=== PATIENT | male | born 1960 | race Caucasian/White ===

== ENCOUNTER 2019-07-29 14:03 | Emergency (ER) | payer BC, SELFPAY ==
[2019-07-29 14:17] VITALS: BP 147/78; PULSE 79; RESP 20; TEMP 36.8; O2SAT 100
--- NOTE | 2019-07-29 14:19 | ED.SKABFB ---
HPI - Skin/Abscess/Foreign Bdy General Chief complaint: Headache Stated complaint: pos infection Time Seen by Provider: 07/29/19 14:20 Source: patient and RN notes reviewed History of Present Illness HPI narrative: Patient is a 59-year-old male who presents the urgent care with his spouse with complaints of a possible infection to a recent incision in the head. Patient states that he had brain surgery for blood on the brain on July 07 at [facility]. Patient had 4 bore holes placed to the top of the head. States that since then he has had some hearing loss as well as headaches, in which his surgeon is aware. Patient states that he does have a headache currently and is having drainage from 1 of the bore holes to the top right of the head. Patient states that the drainage started late last night/early this morning. Denies of any fever. Denies of any neuro complaints such as dizziness, blurred vision, weakness, numbness. Patient does have a follow-up with his surgeon on . No other acute complaints. No acute distress noted. Patient read the plan of care. Related Data Home Medications Medication Instructions Recorded Confirmed amlodipine 07/29/19 atorvastatin 07/29/19 cyclobenzaprine mg 07/29/19 esomeprazole magnesium mg 07/29/19 furosemide 07/29/19 hydralazine 07/29/19 hydrocodone-acetaminophen tablet 07/29/19 levetiracetam PO 07/29/19 losartan 07/29/19 metoprolol tartrate 07/29/19 pramipexole mg 07/29/19 rasagiline mg 07/29/19 terazosin mg 07/29/19 Allergies Allergy/AdvReac Type Severity Reaction Status Date / Time clarithromycin Allergy Mild Verified 02/04/16 06:10 metoprolol Allergy Mild Verified 02/04/16 06:10 ibuprofen Allergy Unknown Verified 02/04/16 06:10 naltrexone Allergy Unknown Verified 02/04/16 06:11 Review of Systems Review of Systems: Narrative: CONSTITUTIONAL: Denies fever, chills, or sweats. EYES: Denies visual changes, redness, or discharge. ENT: Denies rhinorrhea, congestion, sore throat, or otalgia. CARDIOVASCULAR: Denies chest pain, palpitations, or edema. RESPIRATORY: Denies cough or dyspnea. GASTROINTESTINAL: Denies abdominal pain, nausea, vomiting, or diarrhea. GENITOURINARY: Denies dysuria or hematuria. SKIN: Reports of drainage from postsurgical incision on the head MUSCULOSKELETAL: Denies back pain, joint pain, or myalgia. NEUROLOGIC: Reports of headache All other systems reviewed are negative, except as documented in HPI. PMFSH Comments At the time of my signature, I reviewed and agree with the nursing past medical, surgical, social, and family history. There is no relevant family history pertinent to the patient complaint. Exam Narrative: Exam Narrative: GENERAL: This is a well-nourished, well-developed patient, in no apparent distress. HEAD: normocephalic, atraumatic. EYES: PERRL. Sclera clear/white. Vision is grossly intact. EARS: External ears normal NOSE: External nose normal with no obvious nasal discharge THROAT: Mucous membranes moist NECK: Neck supple CARDIOVASCULAR: Regular rate and rhythm without murmurs, gallops, or rubs. RESPIRATORY: Clear to auscultation. Breath sounds equal bilaterally. No wheezes, rales, or rhonchi. SKIN: Mild localized edema and erythema to postsurgical borehole noted on the right frontal lobe with clear drainage. Warm, intact with no suspicious lesions or rash, good texture and turgor. NEURO: awake, alert, and oriented to person, place and time. There were no obvious focal neurologic abnormalities. EXTREMITIES: No clubbing, cyanosis, or edema. Course Vital Signs Vital signs: Vital Signs Temperature 98.2 F 07/29/19 14: Pulse Rate 79 07/29/19 14:17 Respiratory Rate 20 07/29/19 14:17 Blood Pressure 147/78 H 07/29/19 14:17 Pulse Oximetry 100 07/29/19 14:17 Temperature 98.2 F 07/29/19 14:17 Pulse Rate 79 07/29/19 14:17 Respiratory Rate 20 07/29/19 14:17 Blood Pressu
== END 2019-07-29 14:35 | disposition short-term general hospital (02) ==
PROVIDERS: Emergency Provider Nurse Practitioner Family
DX: R51 Headache (principal); L76.82 Other postprocedural complications of skin and subcutaneous tissue; Z86.73 Personal history of transient ischemic attack (TIA), and cerebral infarction without residual deficits; I50.9 Heart failure, unspecified; I11.0 Hypertensive heart disease with heart failure; E78.00 Pure hypercholesterolemia, unspecified
CPT/HCPCS: 99211; G0463

== ENCOUNTER 2019-09-04 13:45 | Outpatient (CLI) | payer BC, SELFPAY ==
--- NOTE | ~2019-09-04 | US_ITS ---
EXAMINATION:US venous doppler LE LT INDICATION:Left leg swelling TECHNIQUE: Multiple grayscale, color flow and Doppler images of the left lower extremity deep venous systems were obtained and reviewed. COMPARISON:No prior studies for comparison. FINDINGS: The common femoral, superficial femoral and popliteal veins demonstrate normal respiratory variation, augmentation and compressibility. Color flow is also seen within the posterior tibial, gr eater saphenous and profunda veins. There is deep venous thrombosis of the peroneal and gastrocnemius veins. IMPRESSION: 1: Deep venous thrombosis of the left peroneal and gastrocnemius veins. The patient will held in radiology until the clinical service is contacted by the front office person wally. Reviewed, dictated and finalized at location A. IMPRESSION: 1: Deep venous thrombosis of the left peroneal and gastrocnemius veins. The patient will held in radiology until the clinical service is contacted by mauricio baker front office personnel.
== END 2019-09-04 13:46 | disposition home or self-care (01) ==
DX: I82.462 Acute embolism and thrombosis of left calf muscular vein (principal); I82.452 Acute embolism and thrombosis of left peroneal vein
CPT/HCPCS: 93971

== ENCOUNTER 2020-02-29 20:43 | Emergency (ER) | payer BC, SELFPAY ==
--- NOTE | ~2020-02-29 | XR_ITS ---
EXAMINATION: XR knee LT min 4V DATE: 02/29/2020 21:18 INDICATION: Left knee pain TECHNIQUE: Four views of the left knee were obtained. COMPARISON: None. FINDINGS: Alignment is normal. No fracture or osteochondral lesion. There is mild tricompartmental os teoarthritis characterized by tiny marginal osteophytes. No joint effusion/synovitis. There is anter ior and medial soft tissue swelling of the knee. IMPRESSION: 1. No acute osseous abnormality. Reviewed, dictated and finalized at location A.
[2020-02-29 20:46] VITALS: BP 144/88; PULSE 84; RESP 20; TEMP 36.9; O2SAT 98
--- NOTE | 2020-02-29 20:59 | PC.NURSE ---
Patient has history of DVT in left leg. Recent history of brain surgery, no current blood thinners
--- NOTE | 2020-02-29 21:52 | ED.LOWEXIN ---
HPI - Extremity Injury (Lower) General Chief Complaint: Extremity Injury, Lower Stated Complaint: Left Knee Pain Time Seen by Provider: 02/29/20 20:53 Source: patient Mode of arrival: ambulatory Limitations: no limitations History of Present Illness HPI Narrative: Patient presents with chief complaint of pain to the left knee that presented after falling today. Patient states that he also noticed increased veins swelling in his medial thigh so he wondering if he injured something or damaged his meniscus. Patient states he has had a meniscal tear in the past which was repaired arthroscopically. Patient denies any calf pain or shortness of breath. Patient reports some pain with weightbearing and range of motion. Patient denies any open wound. He denies head impact or loss of consciousness. Patient denies being on any blood thinners. Related Data Home Medications Medication Instructions Recorded Confirmed amlodipine 07/29/19 atorvastatin 07/29/19 cyclobenzaprine mg 07/29/19 esomeprazole magnesium mg 07/29/19 furosemide 07/29/19 hydralazine 07/29/19 hydrocodone-acetaminophen tablet 07/29/19 levetiracetam PO 07/29/19 losartan 07/29/19 metoprolol tartrate 07/29/19 pramipexole mg 07/29/19 rasagiline mg 07/29/19 terazosin mg 07/29/19 Allergies Allergy/AdvReac Type Severity Reaction Status Date / Time clarithromycin Allergy Mild Unknown Verified 02/29/20 20:58 ibuprofen Allergy Unknown Unknown Verified 02/29/20 20:58 naltrexone Allergy Unknown Unknown Verified 02/29/20 20:58 vancomycin Allergy Unknown Verified 02/29/20 20:58 Review of Systems Review of Systems: Narrative: CONSTITUTIONAL: Denies fever, chills, or sweats. EYES: Denies visual changes, redness, or discharge. ENT: Denies rhinorrhea, congestion, sore throat, or otalgia. CARDIOVASCULAR: Denies chest pain, palpitations, or edema. RESPIRATORY: Denies cough or dyspnea. GASTROINTESTINAL: Denies abdominal pain, nausea, vomiting, or diarrhea. GENITOURINARY: Denies dysuria or hematuria. SKIN: Denies rash or itching. MUSCULOSKELETAL: Reports left knee pain denies back pain, myalgia, or other joint pain NEUROLOGIC: Denies headache, numbness, dizziness, or weakness. PSYCHIATRIC: Denies anxiety or depression. Exam Narrative: Exam Narrative: GENERAL: Well-appearing, well-nourished. HEAD: Normocephalic, atraumatic. EYES: PERRLA and EOMI. ENT: Nares clear, no rhinorrhea or epistaxis. Mucous membranes moist. Airway patent. CHEST: Clear to auscultation. No respiratory distress. No wheezes rales or rhonchi HEART: Regular rate and rhythm. Normal peripheral pulses. EXTREMITIES: THERE are superficial varicosities noted to the left medial thigh. Bilateral chronic stable venous stasis changes. There is no pain with palpation of the calf Homans sign negative. Palpation of the knee without significant tenderness. Flexion and extension is intact. SKIN: Warm, dry, no rash. NEURO: No focal deficits. Alert and oriented x3. PSYCH: Normal mood and affect. Course Vital Signs Vital signs: Vital Signs Temperature 98.4 F 02/29/20 20:46 Pulse Rate 84 02/29/20 20:46 Respiratory Rate 20 02/29/20 20:46 Blood Pressure 144/88 H 02/29/20 20:46 Pulse Oximetry 98 02/29/20 20:46 Temperature 98.4 F 02/29/20 20:46 Pulse Rate 84 02/29/20 20:46 Respiratory Rate 20 02/29/20 20:46 Blood Pressure 144/88 H 02/29/20 20:46 Pulse Oximetry 98 02/29/20 20:46 MDM - Extremity Injury (Lower) MDM Narrative Medical decision making narrative: Patient symptoms suggest tendon or ligamentous sprain. Patient is agreeable to Guevara wrap, discussed R ICE instructions. Patient states that he has a walker and crutches at home. Patient also has pain medication at home. Patient instructed to follow-up with his primary care injection specialist for reevaluation of the knee. He has been informed that the next steps are likely physical therapy or MRI. Differ
== END 2020-02-29 22:07 | disposition home or self-care (01) ==
PROVIDERS: Emergency Provider Emergency Medicine
DX: S83.92XA Sprain of unspecified site of left knee, initial encounter (principal); W19.XXXA Unspecified fall, initial encounter
CPT/HCPCS: 73564; 99283

== ENCOUNTER 2020-04-08 20:02 | Emergency (ER) | payer BC, SELFPAY ==
--- NOTE | ~2020-04-08 | XR_ITS ---
EXAMINATION: XR chest 2V DATE: 04/08/2020 20:41 INDICATION: Midsternal chest pain TECHNIQUE: PA and lateral views of the chest were obtained. COMPARISON: Chest radiograph dated 06/17/2015 FINDINGS: Opacity in the right middle lobe which on the lateral projection has a relatively bandlike appearance favoring atelectasis over pneumonia. No pulmonary edema, pleural effusion or pneumothorax. Cardiomed iastinal silhouette is normal. Several surgical clips in the region of the thoracic inlet suggesting prior thyroidectomy. Mild to moderate thoracic spondylosis with chronic mild anterior wedging of a fe w lower thoracic vertebral bodies. IMPRESSION: 1. Relatively bandlike opacity right middle lobe and favor atelectasis over pneumonia. Reviewed, dictated and finalized at [facility]. R POLISHER IMPRESSION: 1. Relatively bandlike opacity right middle lobe and favor atelectasis over pne umonia.
[2020-04-08 20:07] VITALS: BP 154/100; PULSE 74; RESP 15; TEMP 36.2; O2SAT 97
--- NOTE | 2020-04-08 20:15 | ECG_ITS ---
Measurements Intervals [place] Rate: 76 P: 11 AL: 179 QRS: -19 QRSD: 95 T: 8 QT: 366 QTc: 413 Interpretive Statements SINUS RHYTHM INCOMPLETE RIGHT BUNDLE BRANCH BLOCK DELAYED PRECORDIAL R/S TRANSITION VOLTAGE CRITERIA FOR LVH BORDERLINE ECG Electronically Signed On 04-08-2020 20:29:55 DIRECTOR OF [employer]ERING SALES by Joaquim Miller D.O.
[2020-04-08 20:30] VITALS: BP 152/96; PULSE 76; RESP 20; O2SAT 100
[2020-04-08 20:36] LABS: Basophils Absolute Auto 0.1 K/mm3 (0.0-0.1); Basophils Percent Auto 0.7 % (0.2-1.2); Eosinophils Absolute Auto 0.2 K/mm3 (0-0.3); Eosinophils Percent Auto 2.1 % (0-4.4); Hematocrit 46.5 % (42.0-52.0); Hemoglobin 15.1 g/dL (14.0-18.0); Immature Granulocyte Absolute 0.01 K/mm3 (0.00-0.031); Immature Granulocyte Percent A 0.1 % (0-0.5); Lymphocytes Absolute Auto 1.84 K/mm3 (0.9-3.2); Lymphocytes Percent Auto 25.8 % (18.3-44.2); Mean Corpuscular HGB Conc 32.5 g/dl (32-36); Mean Corpuscular Hemoglobin 30.3 pg (26-34); Mean Corpuscular Volume 93.2 fl (80-100); Mean Platelet Volume 9.9 fl (7.4-10.4); Monocytes Absolute Auto 0.7 K/mm3 (0.1-0.6); Monocytes Percent Auto 9.1 % (2.6-8.5); Neutrophils Absolute Auto 4.4 K/mm3 (1.3-6.7); Neutrophils Percent Auto 62.2 % (45.5-73.1); Platelet Count Result 195 k/mm3 (150-375); Red Blood Count 4.99 M/mm3 (4.6-6.20); White Blood Count 7.1 K/mm3 (4.5-10.0)
[2020-04-08 20:45] LABS: INR 0.9; Prothrombin Time 13.1 Seconds (11.1-14.7)
[2020-04-08 20:46] LABS: Partial Thromboplastin Time 31.6 SECONDS (22.3-36.8)
[2020-04-08 20:49] LABS: Anion Gap 4 mmol/L (8-16); Blood Urea Nitrogen 17 mg/dL (9-20); Calcium 9.2 mg/dL (8.4-10.2); Carbon Dioxide 30 mmol/L (22-30); Chloride 106 mmol/L (98-107); Estimated CRCL calculation 94 ml/min; Estimated Glomerular Filt Rate > 60; Glucose 106 mg/dL (75-110); Potassium 4.3 mmol/L (3.4-5.0); Sodium 140 mmol/L (137-145)
[2020-04-08 20:59] LABS: NT Pro B Type Natriuretic Pept 608 PG/ML (5-100)
[2020-04-08 21:01] LABS: Troponin I < 0.012 ng/mL (0.000-0.034)
[2020-04-08 22:36] VITALS: BP 172/98; PULSE 64; RESP 13; O2SAT 100
--- NOTE | 2020-04-08 23:02 | ED.CHESTPAIN ---
HPI - Chest Pain General Chief Complaint: Chest Pain Stated Complaint: elevated bp,cp Time Seen by Provider: 04/08/20 20:26 Source: patient and family Mode of arrival: ambulatory Limitations: no limitations History of Present Illness HPI narrative: 59-year-old male History of hypertension, diastolic dysfunction, and hyperlipidemia Stopped taking his medications a month or 2 ago because he felt like he was experiencing some unpleasant side effects such as fatigue Also struggling with recent loss of his He is followed by cardiology at [facility] In fact he was seen there this afternoon, where all of these things were discussed; he has the note on his phone He wanted to meet with his PCP, also at [facility], before restarting the meds After returning home he checked his blood pressure a couple of times and got numbers around 180/100 Subsequent to that he started to experience some mild chest tightness and palpitations Consequently he came to the ED to be evaluated Not diaphoretic no nausea no severe shortness of breath His discomfort is mild and is persisted for a couple of hours and nothing is made it better or worse Additionally of note is per the cardiology note, he had an essentially clean cardiac cath several years ago, and passed a nuclear stress test earlier this year MD complaint: chest discomfort Timing of current episode: episodic Pain location: other (Upper chest) Related Data Home Medications Medication Instructions Recorded Confirmed amlodipine 07/29/19 atorvastatin 07/29/19 cyclobenzaprine mg 07/29/19 esomeprazole magnesium mg 07/29/19 furosemide 07/29/19 hydralazine 07/29/19 hydrocodone-acetaminophen tablet 07/29/19 levetiracetam PO 07/29/19 losartan 07/29/19 metoprolol tartrate 07/29/19 pramipexole mg 07/29/19 rasagiline mg 07/29/19 terazosin mg 07/29/19 Allergies Allergy/AdvReac Type Severity Reaction Status Date / Time clarithromycin Allergy Mild Hives Verified 04/08/20 20:24 ibuprofen Allergy Unknown Hives Verified 04/08/20 20:24 naltrexone Allergy Unknown Hives Verified 04/08/20 20:24 vancomycin Allergy Unknown Verified 04/08/20 20:24 Review of Systems Review of Systems: All systems reviewed & are unremarkable except as noted in HPI and below Constitutional: Constitutional: Denies chills, Denies fatigue, Denies fever(s), Denies headache(s) and Denies weakness Eyes: Eyes: Reports no additional eye complaints and Denies change in vision ENT: Denies headache(s), Denies epistaxis, Denies nasal congestion and Denies sore throat Cardiovascular: Cardiovascular: Reports as per HPI, Denies leg edema, Denies palpitations and Denies dyspnea Respiratory: Respiratory: Denies cough, Denies dyspnea and Denies wheezing Gastrointestinal: Gastrointestinal: Denies abdominal pain, Denies diarrhea, Denies nausea and Denies vomiting Genitourinary: Genitourinary: Denies hematuria, Denies dysuria and Denies urinary frequency Musculoskeletal: Musculoskeletal: Denies deformity, Denies arthralgias, Denies joint swelling, Denies muscle weakness and Denies numbness Integumentary/Breasts: Skin/Breast: Denies rash and Denies wounds Neurologic: Denies headache(s), Denies focal weakness, Denies numbness and Denies weakness Psychiatric: Psychiatric: Reports no additional psychiatric complaints Endocrine: Endocrine: Denies fatigue and Denies palpitations Hematologic/Lymphatic: Hematologic/Lymphatic: Denies easy bleeding and Denies easy bruising Allergic/Immunologic: Allergic/Immunologic: Denies wheezing PMFSH Social History Social History Gender identity (if verbalized by the patient): Male Exam Const: General: no acute distress, well developed and awake Nutritional Appearance: well nourished Orientation/consciousness: patient oriented x3 (alert) Limitations: no limitations HENMT: Head: normocephalic and atraumatic Ears: external ears normal General nose exam: No nasal di
[2020-04-09 00:17] LABS: Troponin I < 0.012 ng/mL (0.000-0.034)
[2020-04-09 00:40] VITALS: BP 158/92; PULSE 61; RESP 15; O2SAT 100
== END 2020-04-09 00:40 | disposition home or self-care (01) ==
PROVIDERS: Emergency Provider Emergency Medicine
DX: R07.89 Other chest pain (principal); I10 Essential (primary) hypertension; F41.9 Anxiety disorder, unspecified; E78.5 Hyperlipidemia, unspecified; I45.10 Unspecified right bundle-branch block; R94.31 Abnormal electrocardiogram [ECG] [EKG]
CPT/HCPCS: 36415; 71046; 80048; 83880; 84484; 85025; 85610; 85730; 93005; 99284

== ENCOUNTER 2022-05-02 10:17 | Emergency (ER) | payer BC, SELFPAY ==
[2022-05-02 11:32] VITALS: BP 217/109; PULSE 54; RESP 18; TEMP 36.3; O2SAT 99
--- NOTE | 2022-05-02 11:56 | ED.GENADULT ---
HPI - General Adult General Chief complaint: Headache Stated complaint: nose pain Time Seen by Provider: 05/02/22 11:56 Source: patient, RN notes reviewed and old records reviewed Mode of arrival: ambulatory Limitations: no limitations History of Present Illness HPI narrative: 61-year-old with history of hypertension, brain aneurysm, noncompliance of medication presents to the [facility] with complaints of a headache for at least 1 week. patient reports not taking medication today. Not taking medications as prescribed. Reports left-sided headache that radiates into his left-sided of his nose. Moves all extremities well. Walks with a normal gait. No neuro deficits noted at this time. Denies any blurry vision or change in vision. No nausea or vomiting. Denies chest pain Related Data Home Medications Medication Instructions Recorded Confirmed amlodipine 5 mg tablet 07/29/19 atorvastatin 40 mg tablet 07/29/19 cyclobenzaprine 10 mg tablet mg 07/29/19 esomeprazole magnesium 20 mg mg 07/29/19 capsule,delayed release furosemide 20 mg tablet 07/29/19 hydralazine 50 mg tablet 07/29/19 hydrocodone 10 mg-acetaminophen tablet 07/29/19 325 mg tablet levetiracetam 1,000 mg tablet PO 07/29/19 losartan 100 mg tablet 07/29/19 metoprolol tartrate 50 mg tablet 07/29/19 pramipexole 1.5 mg tablet mg 07/29/19 rasagiline 1 mg tablet mg 07/29/19 terazosin 2 mg capsule mg 07/29/19 Allergies Allergy/AdvReac Type Severity Reaction Status Date / Time clarithromycin Allergy Mild Hives Verified 04/08/20 20:24 ibuprofen Allergy Unknown Hives Verified 04/08/20 20:24 naltrexone Allergy Unknown Hives Verified 04/08/20 20:24 vancomycin Allergy Unknown Verified 04/08/20 20:24 Review of Systems Review of Systems: All systems reviewed & are unremarkable except as noted in HPI and below Constitutional: Constitutional: Reports no additional constitutional complaints Eyes: Eyes: Reports no additional eye complaints ENT: Reports system reviewed and no additional complaints, except as documented Cardiovascular: Cardiovascular: Reports no additional cardiovascular complaints, Denies chest pain and Denies dyspnea Respiratory: Respiratory: Reports no additional respiratory complaints, Denies chest congestion, Denies cough and Denies dyspnea Gastrointestinal: Gastrointestinal: Reports no additional gastrointestinal complaints, Denies abdominal pain, Denies nausea and Denies vomiting Musculoskeletal: Musculoskeletal: Reports no additional musculoskeletal complaints Integumentary/Breasts: Skin/Breast: Reports system reviewed and no additional complaints, except as docu Neurologic: Reports as per HPI and Reports headache(s) ( left-sided) Psychiatric: Psychiatric: Reports no additional psychiatric complaints Allergic/Immunologic: Allergic/Immunologic: Reports no additional allergic/immunologic complaints PMFSH Past Medical History Medical History (Updated 05/02/22 @ 12:06 by Jaquelin Hobson APRN) Anxiety Hypertension Surgical History Surgical History (Updated 05/02/22 @ 12:06 by Jaquelin Hobson APRN) H/O brain surgery 2020, old blood removal Social History Social History Gender identity (if verbalized by the patient): Male Comments At the time of my signature, I reviewed and agree with the nursing past medical, surgical, social, and family history. There is no relevant family history pertinent to the patient complaint. Exam Const: General: cooperative, comfortable, no acute distress, well developed, alert, ill appearing chronically and well nourished Nutritional Appearance: well nourished and obese Orientation/consciousness: patient oriented x3 Limitations: no limitations HENMT: Head: normal to inspection Ears: hearing grossly normal bilaterally and external ears normal Face/Nose/Sinus: Normal external nose present, Normal nares present, Normal nasal mucous membranes and turbinates present and
== END 2022-05-02 12:13 | disposition left against medical advice (07) ==
PROVIDERS: Emergency Provider Nurse Practitioner
DX: I10 Essential (primary) hypertension (principal); G44.89 Other headache syndrome
CPT/HCPCS: 99211; G0463

== ENCOUNTER 2024-05-04 07:04 | Outpatient (CLI) | payer BC, SELFPAY ==
--- NOTE | ~2024-05-04 | MR_ITS ---
EXAMINATION: MR MRCP wo/w con/w 3D wo ind DATE: 05/04/2024 08:16 INDICATION: Abnormal levels of other serum enzymes. Fatty liver. Hepatomegaly. TECHNIQUE: Magnetic resonance imaging (MRI) of the abdomen was performed without and with 20 mL Multi vickey intravenous contrast. Sequences included coronal T2-weighted SS-FSE, coronal T2-weighted FS SS- FSE, coronal T2-weighted FS FIESTA, axial T2-weighted FS FIESTA, axial T2-weighted FIESTA, sagittal T 2-weighted SS-FSE, axial T1-weighted dual-echo FSPGR, axial T2-weighted SS-FSE, axial T1-weighted LAV A, axial T2-weighted STIR FSE. Thick-slab T2-weighted FRFSE-XL images were obtained for magnetic reso nance cholangiopancreatography (MRCP). Rotating maximum intensity projection 3-D reconstructions of t he volumetric data were created by the technologist. Postcontrast sequences included a time course of axial T1-weighted LAVA. COMPARISON: CT dated 02/18/2019 FINDINGS: ABDOMEN MRI: Heart size is normal. No pericardial or pleural effusion. There are couple T2 hyperintense nonenhanci ng hepatic cysts the largest measuring 1 cm. There is suggestion of mild diffuse hepatic steatosis wi th signal dropout on opposed phase imaging however specificity is limited by motion artifact on the d ual echo sequences. Cluster of at least 6 small gallstones measuring up to 6 mm at the dependent neck of the otherwise normal-appearing gallbladder. No gallbladder wall thickening or pericholecystic inf lammatory stranding to suggest acute cholecystitis. There are few <5 mm cystic lesions in the body an d tail the pancreas couple of which appear contiguous with the main pancreatic duct suggesting dilate d sidebranches related to chronic pancreatitis. Pancreas is otherwise unremarkable. Spleen and bilate ral adrenal glands are normal. There are numerous bilateral nonenhancing renal cysts the largest malena uringr up to 9 cm the lower pole of the left kidney. A few the cyst demonstrates decreased T2 and inc reased T1 signal consistent with proteinaceous/hemorrhagic cysts. Midline fat-containing ventral bill ia. Visualized portions of bowels are unremarkable with no obstruction. Normal appendix. No pathologi chris enlarged abdominal or upper pelvic lymphadenopathy. T1 hyperintense hemangioma at L3. Mild thor acic and lumbar spondylosis. ABDOMEN MRCP: Normal caliber common bile duct which measures up to 6 mm in diameter with no evident strictures or f illing defects to suggest choledocholithiasis. Intrahepatic there are tree is also normal. There is m ild dilation of the main pancreatic duct at the head of the pancreas weren't measures up to 4 mm in d iameter also without evident stricture or intraluminal filling defects. IMPRESSION: 1. Suggestion of diffuse hepatic steatosis however specificity is limited by motion artifact on the d ual echo sequences. 2. Cholelithiasis without choledocholithiasis, biliary ductal dilation or findings of acute cholecyst itis. 3. Numerous bilateral renal cysts consistent with autosomal dominant polycystic kidney disease. 4. Mild dilation of the main pancreatic duct at the head of the pancreas and a few dilated side branc hes in the body and tail, likely sequela of chronic pancreatitis. Correlate with clinical history. 5. Fat-containing ventral hernia. Reviewed, dictated and finalized at location A. THESIOLOGIST/PHYSICIAN IMPRESSION: 1. Suggestion of diffuse hepatic steatosis however specificity is limited by mo tion artifact on the dual echo sequences. 2. Cholelithiasis without choledocholithiasis, biliary ductal dilation or findi ngs of acute cholecystitis. 3. Numerous bilateral renal cysts consistent with autosomal dominant polycystic kidney disease. 4. Mild dilation of the main pancreatic duct at the head of the pancreas and a few dilated side branches in the body and tail, likely sequela of chronic pancr eatitis. Correlate with clinical history. 5. Fat-containing ventral hernia.
== END 2024-05-04 07:05 | disposition home or self-care (01) ==
PROVIDERS: PCP Registered Nurse; Visit Provider Nurse Practitioner
DX: K76.0 Fatty (change of) liver, not elsewhere classified (principal); R16.0 Hepatomegaly, not elsewhere classified; R74.8 Abnormal levels of other serum enzymes
CPT/HCPCS: 74183; 76376; A9577

== ENCOUNTER 2024-11-28 11:53 | Outpatient (CLI) | payer MEDICARE, SELFPAY ==
--- OUTSIDE RECORDS SUMMARY | 2024-11-28 11:56 | XMS_ITS | Encounter Summary ---
Author Organization [facility] Address Formerly [facility], [facility] [place] [address] Care Team Providers Care Cafeteria Cashier Name Role Phone Jeffrey Edwards MD Primary Care Provider Un available Breanne Blakely MD, Kurt Primary Care Provider [phone] Cecilia Manuel Primary Care Provider [phone] Encounter Details Date Type Department Care Team (Late st Contact Info) Description 07/14/2019 Hospital Follow-up Call [facility] Telemetry Unit A [address] [facility] [place] [address] Penelope Hernandez, Supervisor Mirror Fabrication Social History Tobacco Use Types Packs/Day Years Used Date Smoking Tobacco: Never Smokeless Tobacco: Never Alcohol Use Standard Drinks/Week Comments No 0 (1 standard drink = 0.6 oz pur e alcohol) Sex and Gender Information Value Date Recorded Sex Assigned at Male 08/02/2024 9:34 AM CDT Legal Sex Male 7:59 PM CDT Gender Identity Not on file Sexual Orientation Not on file documented as of this encounter Functional Status * RETIRED Are you deaf or do you have serious difficulty hearing Answer Date of Assessment Author Status No 07/13/2019 3:27 PM RESIDENTIAL CARE OFFICER Activ e * RETIRED Are you blind or do you have serious difficulty seeing, even when wearing glasses? Answer Date of Assessment Author Status No 07/13/2019 3:27 PM RESIDENTIAL CARE OFFICER Activ e * Do you have serious difficulty walking or climbing stairs? Answer Date of Assessment Author Status No 07/13/2019 3:27 PM RESIDENTIAL CARE OFFICER Sharee Bull R N Active * Do you have difficulty dressing or bathing? Answer Date of Assessment Author Status No 07/13/2019 3:27 PM RESIDENTIAL CARE OFFICER Sharee Bull R N Active * Because of a physical, mental, or emotional condition, do you have difficulty doing errands alone such as visiting a doctor's office or shopping? Answer Date of Assessment Author Status No 07/13/2019 3:27 PM RESIDENTIAL CARE OFFICER Sharee Bull R N Active documented as of this encounter Mental Status * Because of a physical, mental, or emotional condition, do you have serious difficulty concentrating, remembering, or making decisions? Answer Entry Date Author Status No 07/13/2019 3:27 PM RESIDENTIAL CARE OFFICER Sharee Bull R N Active documented in this encounter Plan of Treatment Upcoming Encounters Date Type Department Care Team (Late st Contact Info) Description 11/29/2024 8:20 AM CDT Office Visit [facility] Family & Internal Medicine - [address] [address] Cecilia Manuel [address] [address] 01/05/2025 11:30 AM CDT Office Visit [facility] [address] Dominick Lyon MD [address] [place] [phone] documented as of this encounter Visit Diagnoses Not on filedocumented in this encounter Additional Health Concerns Infection Onset Date Last Indicated Resolved Time COVID-19 Rule Out 12/02/2019 12/02/2019 12/03/2019 9:01 AM CDT documented as of this encounter Care Teams Cafeteria Cashier Relationship Specialty Start Date End Date Jeffrey Edwards MD PCP - General INTERNAL MEDICINE 04/27/17 08/01/20 Kurt Raymundo MD PCP - General INTERNAL MEDICINE 08/02/20 02/14/24 Cecilia Manuel APNP [address] [place] [id number] PCP - General NURSE PRACTITIONER 02/15/24 documented as of this encounter
--- OUTSIDE RECORDS SUMMARY | 2024-11-28 11:56 | XMS_ITS | Encounter Summary ---
Author Organization [facility] Address [address] [facility] [place] [address] Care Team Providers Care Dry Sand Molder Name Role Phone Jeffrey Edwards MD Primary Care Provider [phone] Katherin Rodríguez MD Unavailable Unavailabl e Kurt Raymundo MD Primary Care Provider [phone] Dominick Lyon MD Unavailable [phone] Gaston Gray MD Unavailable Cecilia Manuel JANITORIAL MANAGER-FILTER WASHER AND PRESSER Primary Care Provider Reason for Visit * Reason Comments Refill Request Encounter Details Date Type Department Care Team (Late st Contact Info) Description 01/15/2019 Refill [facility] [address] [facility] Srinivas [address] [place], [place] [id number] Avinash Corbett MD [address] [place], [place] [id number] Refill Request Social History Tobacco Use Types Packs/Day Years Used Date Smoking Tobacco: Never Smokeless Tobacco: Never Alcohol Use Standard Drinks/Week Comments No 0 (1 standard drink = 0.6 oz pur e alcohol) former some alcohol Sex and Gender Information Value Date Recorded Sex Assigned at Not on file Legal Sex Male 2:13 PM BAKERY WORKER Gender Identity Not on file Sexual Orientation Not on file 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 Answer Date of Assessment Author No 08/23/2018 9:36 AM Cathleen Beal RN * Is person blind or have serious difficulty seeing? Answer Date of Assessment Author No 08/23/2018 9:36 AM Cathleen Beal RN * Does person have serious difficulty walking/climbing stairs? Answer Date of Assessment Author No 08/23/2018 9:36 AM Cathleen Beal RN * Does person have difficulty dressing/bathing? Answer Date of Assessment Author No 08/23/2018 9:36 AM Cathleen Beal RN * Does person have difficulty doing errands alone? Answer Date of Assessment Author No 08/23/2018 9:36 AM Cathleen Beal RN documented as of this encounter Mental Status * Does person have difficulty concentrating/remembering/making decisions? Answer Entry Date Author No 08/23/2018 9:36 AM Cathleen Beal RN documented in this encounter Plan of Treatment Not on file documented as of this encounter Visit Diagnoses Diagnosis Chest pain, unspecified type (HFpEF) heart failure with preserved ejection fraction (HCC) Essential hypertension Obstructive sleep apnea Obstructive sleep apnea (adult) (pediatric) documented in this encounter Care Teams Dry Sand Molder Relationship Specialty Start Date End Date Jeffrey Edwards MD PCP - General 09/01/17 06/29/20 Kurt Raymundo MD [address] [facility] [place] [address] PCP - General Internal Medicine 06/30/20 04/11/24 Cecilia Manuel, JANITORIAL MANAGER-FILTER WASHER AND PRESSER [address] [place] [address] PCP - General Nurse Practitioner 04/12/24 Katherin Rodríguez MD Physician Cardiology 03/14/20 04/06/22 Dominick Lyon MD [address] [address] Generator Assembler Internal Medicine 02/18/21 Gaston Gray MD [address] [facility] [place] [address] Surgeon Orthopedic Surgery 04/07/22 documented as of this encounter
--- OUTSIDE RECORDS SUMMARY | 2024-11-28 11:56 | XMS_ITS | Encounter Summary ---
Author Organization [facility] Address [facility] [place] [address] Care Team Providers Care Gambling Dealer Name Role Phone Jeffrey Edwards MD Primary Care Provider Un available Breanne Blakely MD, Kurt Primary Care Provider [phone] Cecilia Manuel Primary Care Provider [phone] Encounter Details Date Type Department Care Team (Late st Contact Info) Description 08/04/2019 Hospital Follow-up Call [facility] Telemetry Unit A [address] [facility] [address] [address] Penelope Hernandez, Private Household Worker Social History Tobacco Use Types Packs/Day Years [...] Answer Date of Assessment Author Status No 07/29/2019 10:01 PM GUIDE DOG TRAINER Acti ve * RETIRED Are you blind or do you have serious difficulty seeing, even when wearing glasses? Answer Date of Assessment Author Status No 07/29/2019 10:01 PM GUIDE DOG TRAINER Acti ve * Do you have serious difficulty walking or climbing stairs? Answer Date of Assessment Author Status No 07/29/2019 10:01 PM GUIDE DOG TRAINER Maribell Galeas RN Active * Do you have difficulty dressing or bathing? Answer Date of Assessment Author Status No 07/29/2019 10:01 PM Maribell Keller RN Active * Because of a physical, mental, or emotional condition, do you have difficulty doing errands alone such as visiting a doctor's office or shopping? Answer Date of Assessment Author Status No 07/29/2019 10:01 PM Maribell Keller RN Active documented as of this encounter Mental Status * Because of a physical, mental, or emotional condition, do you have serious difficulty concentrating, remembering, or making decisions? Answer Entry Date Author Status No 07/29/2019 10:01 PM Maribell Keller RN Active documented in this encounter Plan of Treatment Upcoming Encounters Date Type Department Care Team (Late st Contact Info) Description 11/29/2024 8:20 AM CDT Office Visit [facility] Family & Internal Medicine - [address] [phone] Cecilia Manuel APNP [address] [place] [address] 01/05/2025 11:30 AM CDT Office Visit [facility] [address] Dominick Lyon MD [address] [place] [phone] documented as of this encounter Visit Diagnoses Not on filedocumented in this encounter Additional Health Concerns Infection Onset Date Last Indicated Resolved Time COVID-19 Rule Out 12/02/2019 12/02/2019 12/03/2019 9:01 AM CDT documented as of this encounter Care Teams Gambling Dealer Relationship Specialty Start Date End Date Jeffrey Edwards MD PCP - General INTERNAL MEDICINE 04/27/17 08/01/20 Kurt Raymundo MD PCP - General INTERNAL MEDICINE 08/02/20 02/14/24 Cecilia Manuel APNP [address] [place] [id number] PCP - General NURSE PRACTITIONER 02/15/24 documented as of this encounter
--- OUTSIDE RECORDS SUMMARY | 2024-11-28 11:56 | XMS_ITS | Clinical Summary ---
Author Organization [facility] Address [facility] [place] [address] Care Team Providers Care Collection Systems Administrator Name Role Phone Cecilia Maneul Primary Care Provider [phone] Allergies Active Allergy Reactions Criticality Noted Date Comments Clarithromycin Hives 04/27/2017 Ibuprofen Hives 04/27/2017 Metoprolol-Hydrochlorothiazide Unknown Low 07/08 Depression Vancomycin Palpitations Low 09/04/2019 Medications aspirin EC 81 MG tablet Take 1 tablet (81 mg total) by mouth daily. Active Multiple Vitamins-Minerals (VITEYES AREDS ADVANCED OR) Take 2 tablets by mouth daily. Active clobetasol (TEMOVATE) 0.05 % ointment Apply topically 2 (two) times daily. Active Cholecalciferol (VITAMIN D3) 25 MCG (1000 UT) Cap Take 3,000 Units by mouth. Active magnesium oxide (MAG-OX) 250 MG tablet Take 1 tablet (250 mg total) by mouth daily. Active rosuvastatin (CRESTOR) 10 MG tabletIndications :Mixed hyperlipidemia Take 1 tablet (10 mg total) by mouth nightly at bedtime. 90 tablet 2 024 Active nitroglycerin (NITROSTAT) 0.[address] 1 tablet (0.4 mg total) under the tongue every 5 (five) minutes as needed for Chest Pain (If taking 3rd dose, contact 911.). 25 tablet 1 024 Active Na sulfate-K sulfate-Mg sulfate (SUPREP BOWEL PREP KIT) 17.5-3.13-1.6 GM/177ML SolutionIndicatio ns:Screening for colon cancer,Encounter for colonoscopy due to history of colonic polyp Take 177 mLs by mouth every 12 (twelve) hours. Per GI instructions 354 mL Active amLODIPine (NORVASC) 10 MG tabletIndications :Hypertension, essential TAKE 1 TABLET BY MOUTH EVERY DAY 90 tablet 025 Active ezetimibe (ZETIA) 10 MG tablet TAKE 1 TABLET BY MOUTH EVERY DAY 90 tablet 1 025 Active escitalopram (LEXAPRO) 20 MG tabletIndications :Severe episode of recurrent major depressive disorder, without psychotic features (CMS/HCC HHS/HCC) TAKE 1 TABLET BY MOUTH EVERY DAY 90 tablet 025 Active carvedilol (COREG) 12.5 MG tabletIndications :Hypertension, essential TAKE 1 TABLET BY MOUTH 2 TIMES DAILY. 180 tablet 025 Active hydroCHLOROthiazi de (HYDRODIURIL) 25 MG tabletIndications :Hypertension, essential TAKE 1 TABLET BY MOUTH EVERY DAY IN THE MORNING 90 tablet 025 Active JARDIANCE 25 MG tabletIndications :Type 2 diabetes mellitus with hyperglycemia, without long-term current use of insulin (CMS/HCC HHS/HCC) TAKE 1 TABLET (25 MG TOTAL) BY MOUTH DAILY. 90 tablet 1 025 Active losartan (COZAAR) 50 MG tablet TAKE 1 TABLET BY MOUTH EVERY DAY 90 tablet 1 025 Active losartan (COZAAR) 50 MG tablet Take 1 tablet (50 mg total) by mouth daily. 90 tablet 2 024 2024 Discontinued empagliflozin (JARDIANCE) 25 MG tabletIndications :Type 2 diabetes mellitus with hyperglycemia, without long-term current use of insulin (CMS/HCC HHS/HCC) Take 1 tablet (25 mg total) by mouth daily. 90 tablet 1 024 2024 Discontinued escitalopram (LEXAPRO) 20 MG tabletIndications :Severe episode of recurrent major depressive disorder, without psychotic features (CMS/HCC HHS/HCC) Take 1 tablet (20 mg total) by mouth daily. 90 tablet 025 2024 Discontinued hydroCHLOROthiazi de (HYDRODIURIL) 25 MG tabletIndications :Hypertension, essential TAKE 1 TABLET BY MOUTH EVERY DAY IN THE MORNING 90 tablet 025 2024 Discontinued carvedilol (COREG) 12.5 MG tabletIndications :Hypertension, essential TAKE 1 TABLET BY MOUTH 2 TIMES DAILY. 180 tablet 025 2024 Discontinued Active Problems Problem Noted Date Diagnosed Date Stage 2 chronic kidney disease 06/22/2024 Microalbuminuria 04/11/2024 Renal cyst 04/11/2024 Hepatic steatosis 03/22/2024 Non-insulin dependent type 2 diabetes mellitus ([facility]) 10/08/2023 JULITO (obstructive sleep apnea) 08/22/2021 History of kidney injury 09/02/2020 Nephrolithiasis 09/02/2020 Personal history of thromboembolic disease 08/22 History of subdural hematoma 08/22/2020 Left wrist pain 06/30/2020 Overview (08/03/2020): Has had 5th digit base fracture s/p CRPP, has been doing OT, some pain and swelling w/ limited ROM, slowly improving Last Assessment & Plan: -Continue therapy -Recommended topical NSAID for pain/swelling Adjustment insomnia 01/05/2020 Excessive daytime sleepiness 01/05/2020 Grief reaction 01/05/2020 Insufficient treatment with nasal CPAP 0 Deep venous thrombosis of oswald th femoral veins with thrombophlebitis ([facility]) 09/04/2019 Overview (08/03/2020): Last Assessment & Plan: No blood thinners at this time, follow up PCPl. S/P craniotomy 08/02/2019 Subdural empyema ([facility]) 07/29/2019 Coronary artery disease invo lving [place] coronary artery of [place] heart without angina pectoris 07/13/2019 Overview (08/03/2020): Last Assessment & Plan: Chest pain with Nadine at OSH with moderate irreversible perfusion abnormality present in the inferolateral region(s) of moderate intensity. Reviewed with Dr. Albert maximize antianginals and resume full dose PPI. Follow up with Dr. Albert in two months. Continue Metoprolol 50mg BID and change to Norvasc 5mg Daily and resume Losartan at next appointment. Per NSGY note Ok to resume ASA baby daily and continue statin. Last Assessment & Plan: Pt continues to have chest pain with typical and atypical features, NTG PRN and medical management-Nadine at OSH with moderate irreversible perfusion abnormality present in the inferolateral region(s) of moderate intensity. Reviewed with Dr. Albert maximize antianginals and resume full dose PPI. Follow up with Dr. Albert in two months. Continue Metoprolol 25mg BID and Norvasc, resume Losartan 50mg and statin. Per NSGY note continue to hold antiplatelets as of 09/14. I have reached out to Dr. Lind's office to reviewe safety of ischemia work up and timing of LHC if ok to resume Antiplatelet therapy and blood thinners. Pt has a repeat CT in one week. Diastolic dysfunction 07/13/2019 Overview (08/10/2019): Last Assessment & Plan: Chronic Diastolic Heart Failure: Stable, resume Lasix 20mg and check BMP in one week. Continue Metoprolol 50mg BID, stop Verapamil and Start Norvasc 5mg daily, ? Resume Losartan if BP allows. Follow up with Dr. Albert in 2 months. Macular degeneration 07/13/2019 Subdural hematoma 07/05/2019 Shoulder joint pain 03/08/2019 Hyperparathyroidism (HHS/HCC) 09/20/2018 Positive CLAY (antinuclear antibody) 09/07/2018 Actinic keratosis 03/16/2018 Lentigines 03/16/2018 (HFpEF) heart failure with p reserved ejection fraction (CMS/HCC HHS/HCC) 04/25/2017 Overview (08/03/2020): Last Assessment & Plan: Chronic Diastolic Heart Failure: Stable, resume Lasix 20mg and check BMP in one week. Continue Metoprolol 50mg BID, stop Verapamil and Start Norvasc 5mg daily, ? Resume Losartan if BP allows. Follow up with Dr. Albert in 2 months. Last Assessment & Plan: Chronic Diastolic Heart Failure: Stable, Continue Lasix 20mg and check BMP in one week. Continue Metoprolol XL 75 mg daiky, continue Norvasc 10mg daily, Resume Losartan 50mg. Follow up with Dr. Albert in 2 months. Anxiety 12/30/2016 Patellofemoral stress syndrome of right knee 11/2016 Closed fracture of shaft of fourth metacarpal oswald ne 07/01/2015 PVC (premature ventricular contraction) 04/03/20 15 Overview (07/13/2019): Overview: Overview: The majority PVCs have RBBB,LAF origin(verapamil sensitive). Two beats of RVOT PVCs OA (osteoarthritis) of knee 05/20/2011 Parkinson disease ([facility]) 10/29/2010 Depression 07/10/2009 Overview (08/03/2020): Severe depressed mood w/ SI, has lost multiple family members over the last year most recently lost his mother to COVID19 Last Assessment & Plan: Severe major depression w/ SI -Patient hesitant to go to ED/inpatient for treatment due to COVID -Clinic SW spoke to patient, will follow up with psych Hypertension, essential 07/10/2009 Overview (08/03/2020): Chronic. Presumed essential, possible causes of secondary htn include JULITO. No symptoms of concern. Current meds: -Losartan 100mg daily Home BP readings elevated, had stopped all medications late 2019 due to side effects Last Assessment & Plan: Above goal -Continue Losartan -Resume HCTZ 25mg daily Hypogonadism male 07/10/2009 Adverse effect of drug, medicinal and biological substance 08/30/2006 Class 3 severe obesity due t o excess calories with serious comorbidity and body mass index (BMI) of 45.0 to 49.9 in adult 08/30/2006 Esophageal reflux 08/30/2006 Other diseases of nasal cavity and sinuses 08/30 Other urticaria 08/30/2006 Resolved Problems Problem Noted Date Diagnosed Date Resolved Date Screening for colon cancer 04/07/2024 1 06/10/2023 Encounter for colonoscopy du e to history of colonic polyp 04/07/2024 04/10/2024 BRUNILDA (acute kidney injury) 08/10/2019 SOB (shortness of breath) on exertion 07/13/2019 09/02/2020 Chest pain 07/05/2019 02/15/2024 Heartburn 12/30/2016 02/15/2024 Encounter for preventive health examination 06/24/2015 02/02/2020 Allergic rhinosinusitis 07/10/200901/23 Extrinsic asthma ([facility]) 08/30/2006 0 02/15/2024 Immunizations Immunization Administration Dates Next Due Arexvy Respiratory Syncytial Virus (RSV, adjuvanted) 0.5 mL, PF 08/02/2023 COVID-19 Vaccine (Generic) 08/02/2023 Fluzone (IIV3, Trivalent, 0. 5 ML Prefilled Syringe) 02/25/2024 Influenza (Generic) 04/08/2022,04/09/2021,2014 Influenza Adult (Generic) 05/19/2023,,02/22/2019,2017 PFIZER COVID-19 (ORIGINAL FORMULATION, PURPLE CAP) mRNA, LNP-S, PF, 30 MCG/0.3 ML DOSE 04/25/2021,07/23/2020 Pneumococcal (Prevnar 20) 02/25/2024 Shingrix 08/02/2023,05/19/2023 Tdap (Generic) 05/19/2023,12/27/2009 Family History Medical History Relation Comments Hypertension Brother 1 Emphysema Father Heart Disease Mother Hypertension Mother Relation Status Comments Brother 1 Alive Brother 2 Alive Father Mother Alive Son Alive Social History Tobacco Use Types Packs/Day Years Used Date Smoking Tobacco: Never Smokeless Tobacco: Never Tobacco Cessation:Counseling Given: No Alcohol Use Standard Drinks/Week Comments Yes 0 (1 standard drink = 0.6 oz pure alcohol) Very rarely, once or twice a year PHQ-2 Answer Date Recorded Patient Health Questionnaire-2 Score 2 08/02/2024 Hunger Vital Sign Answer Date Recorded Within the past 12 months, y ou worried that your food would run out before you got the money to buy more. Never true 05/09/20 24 Within the past 12 months, t he food you bought just didn't last and you didn't have money to get more. Never true 05/09/2024 Sex and Gender Information Value Date Recorded Sex Assigned at Male 08/02/2024 9:34 AM CDT Legal Sex Male 7:59 PM CDT Gender Identity Not on file Sexual Orientation Not on file Last Filed Vital Signs Vital Sign Reading Time Taken Comments Blood Pressure 138/88 08/02/2024 10:35 AM CDT Pulse 80 08/02/2024 9:50 AM CDT Temperature 36.7 C (98 F) 08/02/2024 9:50 AM CDT Respiratory Rate 18 08/02/2024 9:50 AM CDT Oxygen Saturation 96% 08/02/2024 9:50 AM CDT Inhaled Oxygen Concentration - - Weight 142.5 kg (314 lb 3.2 oz) 08/02/2024 9:50 AM CDT Height 177.8 cm (5' 10) 08/02/2024 9:50 AM CDT Body Mass Index 45.08 08/02/2024 9:50 AM CDT Plan of Treatment Upcoming Encounters Date Type Department Care Team (Late st Contact Info) Description 11/29/2024 8:20 AM CDT Office Visit [facility] Internal [facility] - [address] [phone] Cecilia Manuel APNP [address] [place] [phone] 01/05/2025 11:30 AM CDT Office Visit [facility] [phone] Dominick Lyon MD 3 [facility] [address] [place] [phone] Health Maintenance Due Date Last Done Comments Colorectal Cancer Screening Colonoscopy (10 Years) 1960 Diabetes: Retinopathy Eye Exam 07/25/1977 COVID-19 Vaccine ( season) 2024 08/02/2023, 08/02/2023, 04/25/2021, Additional history exists Hemoglobin A1C 02/02/2025 08/02/2024, 04/23, 02/15/2024, Additional history exists Kidney Health Evaluation 02/14/2025 02/15/2024 Lipid Panel 02/14/2025 02/15/2024, 08/02/2020 DTaP, Tdap and Td Vaccines (3 - Td or Tdap) 05/19/2033 05/19/2023, 12/27/2009 RSV Immunization or 60+ Years Completed 08/02/2023 Zoster Vaccines Completed 08/02/2023, 05/19/2023 Hepatitis C Completed 02/15/2024, 08/19/2018 Pneumococcal Vaccine: 50+ Years Completed 02/25/2024 PHQ-2 (Physician [place]) Completed 08/02/2024 Meningococcal B Vaccine Aged Out No l onger eligible based on patient's age to complete this topic Meningococcal Vaccine Aged Out No kamaljit cristina eligible based on patient's age to complete this topic RSV Immunizations Under 20 Months Aged Out No longer eligible based on patient's age to complete this topic Medical Devices Implanted Type Area Oracle Scm Consultant Device Identifier Shelf Expiration Date Model / Serial / Lot Synthes Low Profle Neuro Module Tray, Screw, Self Drilling, 4mm Implanted:Qty : 11 on 07/30/2019 by Navi Lind MD at [facility] Left: Cranial 400.834 / / Synthes Low Profle Neuro Module Tray, Plate Low Profile, 4 Hole, Ti, Striaght Implanted:Qty : 2 on 07/30/2019 by Navi Lind MD at [facility] Left: Cranial 400.504 / / Synthes Low Profle Neuro Module Tray, Plate, Adaption, Low Profile 5 Hole, Ti, Straight Implanted:Qty : 1 on 07/30/2019 by Navi Lind MD at [facility] Left: Cranial 400.518 / / Duramatrix Onlay Plus 3x3 - [id number] Implanted:Qty : 2 on 07/30/2019 by Navi Lind MD at [facility] N/A: Cranial RICKIE CRANIOMAXILLOFACIAL - DIV RICKIE CO 12/21/2021 [id number] / / [id number] Synthes Low Profle Neuro Module Tray, Plate, Adaption, Low Profile 5 Hole, Ti, Straight Implanted:Qty : 2 on 07/30/2019 by Navi Lind MD at [facility] Explanted:Qty : 1 on 07/30/2019 at [facility] N/A: Cranial 421.518 / / Synthes Low Profle Neuro Module Tray, Plate Low Profile, 4 Hole, Ti, Striaght Implanted:Qty : 4 on 07/30/2019 by Navi Lind MD at [facility] Explanted:Qty : 2 on 07/30/2019 at [facility] N/A: Cranial 421.504 / / Synthes Low Profle Neuro Module Tray, Screw, Self Drilling, 4mm Implanted:Qty : 14 on 07/30/2019 by Navi Lind MD at [facility] Explanted:Qty : 11 on 07/30/2019 at [facility] N/A: Cranial 400.834 / / Explanted Type Area Oracle Scm Consultant Device Identifier Shelf Expiration Date Model / Serial / Lot Pins [place] Skull Adult Disposable - [id number] Explanted:Qty: 1 on 07/07/2019 by Navi Lind MD at [facility] Pin Scalp [employer] NARDA 03/08/2021 A1072 / / [id number] Pins [place] Skull Adult Disposable - [id number] Explanted:Qty: 1 on 07/30/2019 by Navi Lind MD at [facility] IN[employer]GRA [employer] NARDA 01/31/2021 A1072 / / [id number] Synthes Low Profle Neuro Module Tray, Screw Emergency Explanted:Qty: 1 on 07/30/2019 at [facility] N/A: Cranial 400.854 / / Synthes Low Profle Neuro Module Tray, Screw, Self Drilling 4mm Explanted:Qty: 1 on 07/30/2019 at [facility] N/A: Cranial 400.834 / / Pins [place] Skull Adult Disposable - [id number] Explanted:Qty: 1 on 07/30/[address] [facility] Left: Scalp [employer] NARDA 03/08/2021 [id number] / / [id number] Procedures Procedure Name Priority Date/Time Associated Diagnosis Comments HEMOGLOBIN, GLYCOSYLATED Routine 08/02/2024 Type 2 diabetes mellitus with hyperglycemia, without long-term current use of insulin (CMS/HCC HHS/HCC) LIPID PANEL Routine 02/15/2024 1:28 PM CDT Chronic heart failure with preserved ejection fraction Coronary artery disease involving [place] coronary artery of [place] heart without angina pectoris HEPATITIS C ANTIBODY Routine 02/15/2024 1:27 PM CDT Need for hepatitis C screening test from Last 3 Months or Most Recently Relevant to Health Maintenance Results * HEMOGLOBIN, GLYCOSYLATED (08/02/2024) HGB A1C 8.8 % [facility] 08/02/2024 us Cecilia [facility] Final Resul t [facility] [address] [place] [address], * (ABNORMAL) LIPID PANEL (02/15/2024 1:28 PM CDT) CHOLESTEROL 227(H) <200 MG/DL 02/16/2024 10:17 AM CDT [facility] [place] TRIGLYCERIDES 140 <150 MG/DL 02/16/2024 10:17 AM CDT [facility] [place] HDL 45 >40 MG/DL 02/16/2024 10:17 AM CDT [facility] [place] LDL-C 154(H) <100 MG/DL 02/16/2024 10:17 AM CDT [facility] [place] VLDL CALCULATION 28 5 - 28 MG/DL 02/16/2024 10:17 AM CDT [facility] JEFF [place] CHOL/HDL RATIO 5.0(H) 0.0 - 4.0 02/16/2024 10:17 AM CDT [facility] LDL/HDL 3.4(H) 0.41 - 2.13 02/16/2024 10:17 AM CDT [facility] NON HDL CHOLESTEROL 182(H) <140 MG/DL 02/16/2024 10:17 AM CDT [facility] 02/15/2024 1:28 PM CDT Cecilia [facility] Final Resul t Performing Organization Address City/[facility] Co de Phone Number [facility] [address] [place] [address], [place] [phone] * HEPATITIS C AB ([facility] ONLY) (02/15/2024 1:27 PM CDT) HEPATITIS C AB NON-REACTI VE NON-REACT DORCAS 02/15/2024 10:10 PM CDT [facility] Comment: ANTIBODIES TO HCV NOT DETECTED. DOES NOT EXCLUDE THE POSSIBILITY OF EXPOSURE TO HCV. 02/15/2024 1:27 PM CDT Cecilia [facility] Final Resul t Performing Organization Address City/[facility] Co de Phone Number [facility] [address] [place] [address], [phone] from Last 3 Months or Most Recently Relevant to Health Maintenance Insurance [employer]ET[employer] Advance Directives * Full Code (Latest Code Status on File) Date Activated Date Inactivated Comments 08/01/2020 7:55 PM 08/03/2020 2:58 PM * Full Code Date Activated Date Inactivated Comments 09/04/2019 9:59 PM 09/07/2019 3:24 PM * Full Code Date Activated Date Inactivated Comments 08/10/2019 6:14 PM 08/14/2019 12:08 PM * Full Code Date Activated Date Inactivated Comments 07/30/2019 11:24 PM 08/03/2019 7:01 PM * Full Code Date Activated Date Inactivated Comments 07/30/2019 6:14 PM 07/30/2019 11:24 PM Care Teams Collection Systems Administrator Relationship Specialty Start Date End Date Cecilia Manuel APNP [address] [place] [id number] PCP - General NURSE PRACTITIONER 02/15/24
--- OUTSIDE RECORDS SUMMARY | 2024-11-28 11:56 | XMS_ITS | Encounter Summary ---
Author Organization [facility] Address [address] [place] [address] Care Team Providers Care Offset Press Operator Name Role Phone Kurt Raymundo MD Primary Care Provider [phone] Dominick Lyon MD Unavailable [phone] Gaston Gray MD Unavailable Cecilia Manuel Primary Care Provider Reason for Referral * Consultation (Routine) - Closed Specialty Diagnoses / Procedures Referred By Freddy martínez Referred To Contact ENT-Otolaryngology Diagnoses JULITO (obstructive sleep apnea) Cecilia Manuel APRN-CNP [address] [place] [address] Phone: tel: fax: [facility] - ENT [address] [place] [phone] Phone: tel: fax: Referral ID Status Reason Start Date Expiration Date V isits Requested Visits Authorized [id number] Closed Specialty Services Required 04/06/2024 04/06/2025 1 1 ASSISTANT Encounter Details Date Type Department Care Team (Latest Contact Info) Description 04/06/2024 Transcribe Orders [facility] - Centralized Scheduling [address] [place] [phone] Cecilia Manuel APRN-CNP [address] [place] [address] JULITO (obstructive sleep apnea) Social History Tobacco Use Types Packs/Day Years Used Date Smoking Tobacco: Never Smokeless Tobacco: Never Alcohol Use Standard Drinks/Week Comments Not Currently 0 (1 standard drink = 0.6 oz pur e alcohol) former some alcohol PHQ-2 Answer Date Recorded Patient Health Questionnaire-2 Score 2 05/19/2023 Sex and Gender Information Value Date Recorded Sex Assigned at Not on file Legal Sex Male 2:13 PM VET ASSISTANT Gender Identity Not on file Sexual Orientation Not on file 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 Answer Date of Assessment Author No 03/04/2021 10:30 AM Jerri Helms RN * Is person blind or have serious difficulty seeing? Answer Date of Assessment Author No 03/04/2021 10:30 AM Jerri Helms RN * Does person have serious difficulty walking/climbing stairs? Answer Date of Assessment Author No 03/04/2021 10:30 AM Jerri Helms RN * Does person have difficulty dressing/bathing? Answer Date of Assessment Author Yes 03/04/2021 10:30 AM Jerri Helms RN * Does person have difficulty doing errands alone? Answer Date of Assessment Author No 03/04/2021 10:30 AM Jerri Helms RN documented as of this encounter Mental Status * Does person have difficulty concentrating/remembering/making decisions? Answer Entry Date Author No 03/04/2021 10:30 AM Jerri Helms RN documented in this encounter Plan of Treatment Scheduled Referrals Name Type Priority Associated Diagnoses Order Schedule AMB REFERRAL TO ENT Outpatient Referral Routine JULITO (obstructive sleep apnea) 1 Occurrences starting 04/06/2024 until 04/06/2025 documented as of this encounter Goals Goal Patient Goal Type Associated Problems Recent Progress Patient-Stated? Author Mobility General No change( 020 10:49 AM VET ASSISTANT) No Sierra Martinez, RN Note: Expected end date: 05/23/2020 The goal is to maintain or improve your mobility at the optimum level for you. Interventions: documented as of this encounter Visit Diagnoses Diagnosis JULITO (obstructive sleep apnea)- Primary Obstructive sleep apnea (adult) (pediatric) documented in this encounter Care Teams Offset Press Operator Relationship Specialty Start Date End Date Kurt Raymundo MD [address] [place] [address] PCP - General Internal Medicine 06/30/20 04/11/24 Cecilia Manuel, BASKET HAND BRAIDER-HANDICRAFTS TEACHER [address], [place] [phone] PCP - General Nurse Practitioner 04/12/24 Dominick Lyon MD 3 [facility] [address] [place] [phone] Priest Internal Medicine 02/18/21 Gaston Gray MD [address] [place] [address] Surgeon Orthopedic Surgery 04/07/22 documented as of this encounter
--- OUTSIDE RECORDS SUMMARY | 2024-11-28 11:56 | XMS_ITS | Encounter Summary ---
Author Organization [facility] Address [address] [facility] [place] [address] Care Team Providers Care Wood Coater Name Role Phone Katherin Rodríguez MD Unavailable [facility] Kurt Raymundo MD Primary Care Provider [phone] Dominick Lyon MD Unavailable [phone] Gaston Gray MD Unavailable Cecilia Manuel CUSHION ASSEMBLER-METAL SANDER Primary Care Provider Reason for Visit * Reason Onset Date Comments Refill Request 10/27/2021 Encounter Details Date Type Department Care Team (Late st Contact Info) Description 10/27/2021 Telephone [facility] General Internal Medicine [address] [facility], [place] [address] Kurt Raymundo MD [address] [place] [address] DIV OF [facility] [place] [address] Refill Request Social History Tobacco Use Types Packs/Day Years Used Date Smoking Tobacco: Never Smokeless Tobacco: Never Alcohol Use Standard Drinks/Week Comments Not Currently 0 (1 standard drink = 0.6 oz pur e alcohol) former some alcohol PHQ-2 Answer Date Recorded PHQ2 TOTAL SCORE 2 10/01/2021 Sex and Gender Information Value Date Recorded Sex Assigned at Not on file Legal Sex Male 2:13 PM PERFORMANCE TEST ARCHITECT Gender Identity Not on file Sexual Orientation [...] on file documented as of this encounter Goals Goal Patient Goal Type Associated Problems Recent Progress Patient-Stated? Author Mobility General No change( 020 10:49 AM PERFORMANCE TEST ARCHITECT) No Sierra Martinez RN Note: Expected end date: 05/23/2020 The goal is to maintain or improve your mobility at the optimum level for you. Interventions: documented as of this encounter Visit Diagnoses Not on filedocumented in this encounter Care Teams Wood Coater Relationship Specialty Start Date End Date Kurt Raymundo MD [facility] [place] [address] PCP - General Internal Medicine 06/30/20 04/11/24 Cecilia Manuel, CUSHION ASSEMBLER-METAL SANDER [address] [place] [address] PCP - General Nurse Practitioner 04/12/24 Katherin Rodríguez MD Physician Cardiology 03/14/20 04/06/22 Dominick Lyon MD [address] [facility] [address] [place] [phone] Repairer Typewriter Internal Medicine 02/18/21 Gaston Gray MD [address] [facility] [place] [address] Surgeon Orthopedic Surgery 04/07/22 documented as of this encounter
--- OUTSIDE RECORDS SUMMARY | 2024-11-28 11:56 | XMS_ITS | Encounter Summary ---
Author Organization [facility] Address [address] [facility] [place] [address] Care Team Providers Care Program Admin Name Role Phone Jeffrey Edwards MD Primary Care Provider [phone] Katherin Rodríguez MD Unavailable Unavailabl e Kurt Raymundo MD Primary Care Provider [phone] Dominick Lyon MD Unavailable [phone] Gaston Gray MD Unavailable Cecilia Manuel SCHOOL LIBRARIAN-DOUBLE END TRIMMER Primary Care Provider Encounter Details Date Type Department Care Team (Late st Contact Info) Description 03/02/2019 Telephone [facility] Endocrinology, Diabetes and Metabolism [address] [place], [place] [id number] Doug Thompson MD [address] [place] [address] Social History Tobacco Use Types Packs/Day Years Used Date Smoking Tobacco: Never Smokeless Tobacco: Never Alcohol Use Standard Drinks/Week Comments No 0 (1 standard drink = 0.6 oz pur e alcohol) former some alcohol Sex and Gender Information Value Date Recorded Sex Assigned at Not on file Legal Sex Male 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 Answer Date of Assessment Author No 08/23/2018 9:36 AM MARYT Cathleen Mendoza RN * Is person blind or have serious difficulty seeing? Answer Date of Assessment Author No 08/23/2018 9:36 AM CDT Cathleen Mendoza RN * Does person have serious difficulty walking/climbing stairs? Answer Date of Assessment Author No 08/23/2018 9:36 AM CDT Cathleen Mendoza RN * Does person have difficulty dressing/bathing? Answer Date of Assessment Author No 08/23/2018 9:36 AM MARYT Cathleen Mendoza RN * Does person have difficulty doing errands alone? Answer Date of Assessment Author No 08/23/2018 9:36 AM CDT Cathleen Mendoza RN documented as of this encounter Mental Status * Does person have difficulty concentrating/remembering/making decisions? Answer Entry Date Author No 08/23/2018 9:36 AM Cathleen Beal RN documented in this encounter Miscellaneous Notes * Telephone Encounter - Franca Pedersen - 03/02/2019 2:30 PM CDT Current Provider name: Dr. Jay Figueredo Reason for call: Mr. Figueredo had pyrathyroid exam and is to have FU appt to have labs reveiwed by Dr. Thompson. My first available appt is 04/13/2019. He needsoffice to schedule earlier appt. Patient Call Back number: [phone] documented in this encounter Plan of Treatment Not on file documented as of this encounter Visit Diagnoses Not on filedocumented in this encounter Care Teams Program Admin Relationship Specialty Start Date End Date Jeffrey Edwards MD PCP - General 09/01/17 06/29/20 Kurt Raymundo MD [address] [place] [address] PCP - General Internal Medicine 06/30/20 04/11/24 Cecilia Manuel, SCHOOL LIBRARIAN-DOUBLE END TRIMMER [address] [place] [address] PCP - General Nurse Practitioner 04/12/24 Katherin Rodríguez MD Physician Cardiology 03/14/20 04/06/22 Dominick Lyon MD [address] [facility] [address] [place] [address] Recreational Assistant Internal Medicine 02/18/21 Gaston Gray MD [address] [facility] [place] [address] Surgeon Orthopedic Surgery 04/07/22 documented as of this encounter
--- OUTSIDE RECORDS SUMMARY | 2024-11-28 11:56 | XMS_ITS | Encounter Summary ---
Author Organization [facility] Address [address] [facility] [place] [address] Care Team Providers Care Assembler Clip On Sunglasses Name Role Phone Jeffrey Edwards MD Primary Care Provider [phone] Katherin Rodríguez MD Unavailable Unavailabl e Kurt Raymundo MD Primary Care Provider [phone] Dominick Lyon MD Unavailable [phone] Gaston Gray MD Unavailable Cecilia Manuel METALLURGICAL SPECIALIST-BUSINESS REPORTER Primary Care Provider Encounter Details Date Type Department Care Team (Late st Contact Info) Description 01/09/2020 Telephone [facility] [address] [place] [address] Jeffrey Edwards MD [address] [facility] [place] [address] Social History Tobacco Use Types Packs/Day Years Used Date Smoking Tobacco: Never Smokeless Tobacco: Never Alcohol Use Standard Drinks/Week Comments No 0 (1 standard drink = 0.6 oz pur e alcohol) former some alcohol Sex and Gender Information Value Date Recorded Sex Assigned at Not on file 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 Answer Date of Assessment Author No 08/23/2018 9:36 AM MARYT Hendersho t, Cathleen, RN * Is person blind or have [...] 08/23/2018 9:36 AM MARYT Cathleen Mendoza RN documented as of this encounter Mental Status * Does person have difficulty concentrating/remembering/making decisions? Answer Entry Date Author No 08/23/2018 9:36 AM AMRYT Cathleen Mendoza RN documented in this encounter Miscellaneous Notes * Telephone Encounter - Josephine Downs - 01/15/2020 10:40 AM CDT DONE * Telephone Encounter - Josephine Downs - 01/10/2020 9:[address] Gregg Please advise * Telephone Encounter - Jose Meadows - 01/09/2020 4:18 PM CDT I am going through conversions for Jan./Feb. and have come across Kin Figueredo, in the notes it sys ok to be office per , wanted clarification if you wanted him in office that day or telemed? Kin Figueredo [id number] Thank you Jose Schaffer documented in this encounter Plan of Treatment Not on file documented as of this encounter Visit Diagnoses Not on filedocumented in this encounter Care Teams Assembler Clip On Sunglasses Relationship Specialty Start Date End Date Jeffrey Edwards MD PCP - General 09/01/17 06/29/20 Kurt Raymundo MD [address] [place] [address] PCP - General Internal Medicine 06/30/20 04/11/24 Cecilia Manuel, METALLURGICAL SPECIALIST-BUSINESS REPORTER [address] [place] [address] PCP - General Nurse Practitioner 04/12/24 Katherin Rodríguez MD Physician Cardiology 03/14/20 04/06/22 Dominick Lyon MD [address] [facility] [address] [place] [phone] Contact And Service Clerks Supervisor Internal Medicine 02/18/21 Gaston Gray MD [address] [place] [address] Surgeon Orthopedic Surgery 04/07/22 documented as of this encounter
--- OUTSIDE RECORDS SUMMARY | 2024-11-28 11:57 | XMS_ITS | Encounter Summary ---
Author Organization [facility] Address [facility] [place] [address] Care Team Providers Care Catalyst Recovery Operator Name Role Phone Breanne Blakely MD, Kurt Primary Care Provider [phone] Cecilia Manuel Primary Care Provider [phone] Encounter Details Date Type Department Care Team (Late st Contact Info) Description 08/09/2020 Hospital Follow-up Call [facility] [place] [address] Quin Reece RN Social History Tobacco Use Types Packs/Day Years Used Date Smoking Tobacco: Never Smokeless Tobacco: Never Alcohol Use Standard Drinks/Week Comments No 0 (1 standard drink = 0.6 oz pur e alcohol) Sex and Gender Information Value Date Recorded Sex Assigned at Male 08/02/2024 9:34 AM CDT Legal Sex Male 7:59 PM CDT Gender Identity Not on file Sexual Orientation Not on file COVID-19 Exposure Response Date Recorded In the last month, have you been in contact with someone who was confirmed or suspected to have Coronavirus / COVID-19? No / Unsure 08/01/2020 3:52 PM ANESTHESIOLOGIST documented as of this encounter Functional Status * RETIRED Are you deaf or do you have serious difficulty hearing Answer Date of Assessment Author Status No 08/01/2020 11:18 PM ANESTHESIOLOGIST Acti ve * RETIRED Are you blind or do you have serious difficulty seeing, even when wearing glasses? Answer Date of Assessment Author Status No 08/01/2020 11:18 PM ANESTHESIOLOGIST Acti ve * Do you have serious difficulty walking or climbing stairs? Answer Date of Assessment Author Status No 08/01/2020 11:18 PM Palma Schumacher Active * Do you have difficulty dressing or bathing? Answer Date of Assessment Author Status No 08/01/2020 11:18 PM Palma Schumacher Active * Because of a physical, mental, or emotional condition, do you have difficulty doing errands alone such as visiting a doctor's office or shopping? Answer Date of Assessment Author Status No 08/01/2020 11:18 PM Palma Schumacher Active documented as of this encounter Mental Status * Because of a physical, mental, or emotional condition, do you have serious difficulty concentrating, remembering, or making decisions? Answer Entry Date Author Status No 08/01/2020 11:18 PM Palma Schumacher Active documented in this encounter Plan of Treatment Upcoming Encounters Date Type Department Care Team (Late st Contact Info) Description 11/29/2024 8:20 AM CDT Office Visit [facility] Family & Internal Medicine - [address] [phone] Cecilia Manuel APNP [address] [place] [address] 01/05/2025 11:30 AM CDT Office Visit [facility] [phone] Dominick Lyon MD [address] [facility] [address] [place] [phone] documented as of this encounter Visit Diagnoses Not on filedocumented in this encounter Care Teams Catalyst Recovery Operator Relationship Specialty Start Date End Date Kurt Raymundo MD PCP - General INTERNAL MEDICINE 08/02/20 02/14/24 Cecilia Maunel APNP [address] [place] [address] PCP - General NURSE PRACTITIONER 02/15/24 documented as of this encounter
--- OUTSIDE RECORDS SUMMARY | 2024-11-28 11:57 | XMS_ITS | Clinical Summary ---
Author Organization [facility] Address [address] [place] [address] Care Team Providers Care Graduate Civil Engineer Name Role Phone Dominick Lyon MD Unavailable [phone] Gaston Gray MD Unavailable Cecilia Manuel RETURNS SUPERVISOR-RELIGIOUS STUDIES PROFESSOR Primary Care Provider Source Comments [facility]non-owned Affiliates and Associated Physician Practices is amultiple site organization consisting of ambulatory clinics and hospital sitesin [place], [place], [place] and [place]. This disclosure is being madepursuant to the Care Everywhere program and may not contain all information available regarding this patient. Last updated 18.[facility] Allergies Active Allergy Reactions Criticality Noted Date Comments Clarithromycin Urticaria High 07/08/2009 Other reaction(s): Other (See Comments) Not confirmed Ibuprofen Urticaria Medium 03/20/2015 Lopressor Hct Unknown Low 07/08/2009 Depression Metoprolol-Hydrochlorothiaz julia Unknown Low 07/08/2009 Depression Naltrexone Unknown Low 07/24/2015 Worsened depression Vancomycin Palpitations Low 09/04/2019 Medications * This document contains information received from the source organization and may not represent a complete record from that organization. * Be aware that medications may not be up to date on this document. Alwaysverify current medications with the patient. Multiple Vitamins-Minerals (VITEYES AREDS ADVANCED PO) Take 2 tablets by mouth once daily Active nitroGLYCERIN (Nitrostat) 0.4 MG tabletIndications :Chest Pain Dissolve 1 (one) tablet under the tongue every 5 minutes as needed for Angina Reasons: Chest Pain 30 tablet 3 2 Active Aspirin Low Dose 81 MG tabletIndications :Hypertension, essential TAKE 1 TABLET BY MOUTH EVERY DAY 90 tablet 1 3 Active levETIRAcetam (Keppra) 1000 MG tablet Take 1 (one) tablet by mouth 2 times daily Active albuterol HFA (ProAir HFA) 108 (90 Base) MCG/ACT inhaler Inhale 2 (two) puffs by mouth as needed 6.7 g 2 3 Active clobetasol (Temovate) 0.05 % ointmentIndicatio ns:Prurigo nodularis Apply to affected areas on the arms up to twice daily. 30 days supply. 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, without psychotic features (HCC) TAKE 1 CAPSULE BY MOUTH EVERY DAY FOR MAJOR DEPRESSIVE DISORDER 90 capsule 1 3 Active amLODIPine (Norvasc) 10 MG tablet TAKE 1 TABLET BY MOUTH EVERY DAY 90 tablet 3 3 Active Active Problems Problem Noted Date Diagnosed Date Metabolic dysfunction-associ ated steatotic liver disease (MASLD) 04/26/2024 Overview (04/26/2024): 04/26/24 Fibroscan CAP 338, LSM 15.7 kPa Nonintractable headache 05/22/2023 Overview (05/22/2023): Onset: gradual Frequency: 2-3 times a week Location: frontal Duration: lasting a few hours Character: aching, not severe, no vision changes Associated features: no photo/phonophobia, no nausea Alleviating/aggravating factors: does have night time symptoms, awakens from sleep, no worse w/ laughing/coughing/sneezing Assessment & Plan (05/22/2023 2:47 PM COSMETIC CONSULTANT): New headaches, tension type by history but having nighttime symptoms, 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 -Can treatment w/ prn acetaminophen for now -Will obtain head imaging w/ MR Preventative health care 05/22/2023 Overview (05/22/2023): Immunizations Immunization History Administered Date(s) Administered Lynk primary monovalent 12+ yr 0.3mL Purple cap 07/23/2020, 08/13/2020, 04/25/2021 FLU VACCINE QUAD IIV4 SPLIT PF IM 03/08/2018, 02/22/2019, 04/08/2020, 05/19/2023 FLU VACCINE QUAD RIV4 PF IM 04/09/2021, 04/08/2022 INFLUENZA 03/20/2015 TDAP (7yrs+) 12/27/2009, 05/19/2023 Zoster Hzv Vacc Recombinant Inj Im 05/19/2023 Cardiovascular prevention: no tobacco use, last lipids 04/2022 showed 10yr ASCVD risk 17.5% w/ LDL-C 107, last a1c 5.7% on 2019 HIV/HCV: last done 2018, negative Male specific HCM Prostate cancer screening discussion: PSA negative last 2013 Assessment & Plan (05/22/2023 2:55 PM COSMETIC CONSULTANT): -Flu, tdap, shingrix today Right flank pain 10/01/2021 Overview (10/05/2021): 09/2021: Right flank pain for the last 3 weeks, no significant radiation, no hematuria, 7-8 out of 10 at its worst, has a history of kidney stones Assessment & Plan (10/01/2021 9:50 AM CDT): Patient presenting with right flank pain of 3 weeks Has hx of kidney stones Denies fevers, chills, bloody urine Plan: -CT renal stone ordered -Pain control Nephrolithiasis 09/02/2020 Personal history of thromboembolic disease 08/22 History of subdural hematoma 08/22/2020 Overview (11/11/2022): ED visit for headache, CTH w/ chronic SDH, bilateral karuna holes for chronic SDH performed 07/07/2019. s/p bilateral frontoparietal craniotomy and evacuation of right frontal subdural empyema performed 07/30/19 Grief reaction 01/05/2020 Deep venous thrombosis of oswald th femoral veins with thrombophlebitis 10/02/2019 Assessment & Plan (10/02/2019 11:03 AM CDT): No blood thinners at this time, follow up PCPl. Shoulder pain 03/08/2019 Overview (12/06/2022): s/p left shoulder rotator cuff repair with bioinductive patch DOS 03/04/2021 Actinic keratosis 03/16/2018 Lentigines 03/16/2018 (HFpEF) heart failure with preserved ejection fr action 04/25/2017 Overview (02/05/2021): Last Assessment & Plan: Chronic Diastolic Heart [...] up with Dr. Albert in 2 months. Patellofemoral stress syndrome of right knee 11/2016 PVC (premature ventricular contraction) 04/03/20 15 Overview (09/05/2017): Overview: The majority PVCs have RBBB,LAF origin(verapamil sensitive). Two beats of RVOT PVCs OA (osteoarthritis) of knee 05/20/2011 Parkinson disease 10/29/2010 Overview (10/05/2021): Followed by neurology last seen 01/2020, taking Pramipexole, rasagiline, tolerating ok 09/2021: has stopped medications for parkinons, no major mobility limitations Depression 07/10/2009 Overview (05/22/2023): Severe depressed mood w/ SI, has lost multiple family members over the last year most recently lost his mother to COVID19. 09/2020: Has not been able to establish w/ psychiatrist, mood symptoms are improved, doing ok managing at home 03/2021: continues to suffer from depressed mood, difficulty sleeping, loss of interest 09/2021: no major changes, has not been taking duloxetine for months 03/2022: no major changes, restarted duloxetine recently 10/2022: no major changes, continues to have little motivation, depressed mood, no si/hi, unable to find a therapist 04/2023: no changes, mood is down, motivation difficulties, sleeping ok, no si/hi Assessment & Plan (05/22/2023 2:44 PM COSMETIC CONSULTANT): Stable major depression -Continue duloxetine -Difficulty finding a therapist Assessment & Plan (11/19/2022 4:32 PM CDT): Chronic major depression. No notable benefit w/ duloxetine, no side effects of note -Discussed finding a therapist, will send a referral -Increase duloxetine to 40mg qd Assessment & Plan (04/11/2022 9:51 PM COSMETIC CONSULTANT): Stable depression -Continue duloxetine -Will re assess after a few weeks Assessment & Plan (10/01/2021 9:52 AM CDT): Has been off Duloxetine since March Has tried a grief support group but didn't find it beneficial Plan: -Restart duloxetine -Discussed establishing with a therapist/counselor Assessment & Plan (04/09/2021 11:19 PM COSMETIC CONSULTANT): Has been of Duloxetine for 2-3 weeks, has tried a grief support group but didn't find it beneficial -Resume duloxetine -Discussed establishing with a therapist/counselor Assessment & Plan (10/21/2020 11:31 AM CDT): Currently taking Duloxetine, tolerating well -Continue duloxetine, encouraged to establish care with psychiatrist Assessment & Plan (06/30/2020 4:28 PM COSMETIC CONSULTANT): Severe major depression w/ SI -Patient hesitant to go to ED/inpatient for treatment due to COVID -Clinic SW spoke to patient, will follow up with psych Hypertension, essential 07/10/2009 Overview (05/22/2023): Chronic. Presumed essential, possible causes of secondary htn include JULITO. No symptoms of concern. Had stopped all medications late 2019 due to side effects Amlodipine 10mg qd HCTZ 25 mg qd Carvedilol 12.5 mg bid Losartan 50 mg qd Home monitorins/80s BP Readings from Last 3 Encounters: 05/19/23 150/88 11/11/22 125/81 04/08/22 144/92 Follows w/ [facility] Assessment & Plan (05/22/2023 2:43 PM COSMETIC CONSULTANT): BP better at home -Continue medications Assessment & Plan (11/11/2022 9:41 AM CDT): BP at goal -Continue meds Assessment & Plan (04/11/2022 9:50 PM COSMETIC CONSULTANT): Resume medications -Refilled -Check chemistries Assessment & Plan (10/01/2021 9:41 AM CDT): BP at goal this visit Plan: -Continue blood pressure medications -Check blood pressure at home Assessment & Plan (04/09/2021 10:40 PM COSMETIC CONSULTANT): BP above goal, has missed some doses this week -Resume medications, monitor home BP -Check bmp Assessment & Plan (06/30/2020 4:30 PM COSMETIC CONSULTANT): Above goal -Continue Losartan -Resume HCTZ 25mg daily Class 3 severe obesity with serious comorbidity and body mass index (BMI) of 40.0 to 44.9 in adult 08/30/2006 Sleep apnea 08/30/2006 Macular degeneration Resolved Problems Problem Noted Date Diagnosed Date Resolved Date Rash 11/19/2022 12/17/2022 Overview (11/19/2022): 10/2022; new rash on arms over the past 2 months, started as bumps, then crusted over, pruriticw/ some pain, no improvement w/ calamine lotion Assessment & Plan (11/19/2022 4:34 PM CDT): Unclear rash ddx atopic vs contact dermatitis vs other -Will trial OTC hydrocortisone -Will refer for eval if no improvement Tendinopathy of left rotator cuff 10/04/2020 10/21/2020 History of kidney injury 09/02/2020 Left wrist pain 06/30/2020 10/01/2021 Overview (06/30/2020): Has had 5th digit base fracture s/p CRPP, has been doing OT, some pain and swelling w/ limited ROM, slowly improving Assessment & Plan (06/30/2020 4:32 PM COSMETIC CONSULTANT): -Continue therapy -Recommended topical NSAID for pain/swelling Left wrist pain 06/30/2020 10/01/2021 Overview (02/05/2021): Has had 5th digit base fracture s/p CRPP, has been doing OT, some pain and swelling w/ limited ROM, slowly improving Last Assessment & Plan: -Continue therapy -Recommended topical NSAID for pain/swelling Adjustment insomnia 01/05/2020 05/22/20 23 Excessive daytime sleepiness 01/05/2020 05/22/2023 Insufficient treatment with nasal CPAP 01/05/2020 04/11/2022 Deep venous thrombosis of oswald th femoral veins with thrombophlebitis 09/04/2019 04/09/2021 Overview (08/09/2020): Last Assessment & Plan: No blood thinners at this time, follow up PCPl. Deep venous thrombosis of oswald th femoral veins with thrombophlebitis 09/04/2019 04/09/2021 Overview (02/05/2021): Last Assessment & Plan: No blood thinners at this time, follow up PCPl. BRUNILDA (acute kidney injury) 08/10/2019 S/P craniotomy 08/02/2019 08/21/2019 Subdural empyema 07/29/2019 10/21/2020 Coronary artery disease invo lving [place] coronary artery of [place] heart without angina pectoris 07/13/2019 04/09/2021 Overview (08/09/2020): Last Assessment & Plan: Chest pain with [...] has a repeat CT in one week. Coronary artery disease invo lving [place] coronary artery of [place] heart without angina pectoris 07/13/2019 04/09/2021 Overview (02/05/2021): Last Assessment & Plan: Chest pain with [...] repeat CT in one week. Diastolic dysfunction 07/13/20192022 Overview (02/05/2021): Last Assessment & Plan: Chronic Diastolic Heart Failure: Stable, resume Lasix 20mg and check BMP in one week. Continue Metoprolol 50mg BID, stop Verapamil and Start Norvasc 5mg daily, ? Resume Losartan if BP allows. Follow up with Dr. Albert in 2 months. Subdural hematoma 07/05/2019 10/21/2020 Hyperparathyroidism 09/20/2018 10/06/19 Positive CLAY (antinuclear antibody) 09/07/2018 11/19/2022 History of actinic keratoses 09/07/2018 12/19/2018 Herpes virus infection of oral mucosa 09/07/2018 12/07/2018 Dehydration 08/19/2018 09/02/2018 Unspecified lesions of oral mucosa 08/19/2018 09/20/2018 Acute pharyngitis 08/12/2018 08/26/2018 (HFpEF) heart failure with p reserved ejection fraction 04/25/2017 10/16/2020 Assessment & Plan (10/02/2019 11:02 AM CDT): Chronic Diastolic Heart Failure: Stable, Continue Lasix 20mg and check BMP in one week. Continue Metoprolol XL 75 mg daiky, continue Norvasc 10mg daily, Resume Losartan 50mg. Follow up with Dr. Albert in 2 months. Assessment & Plan (07/27/2019 10:05 AM COSMETIC CONSULTANT): Chronic Diastolic Heart Failure: Stable, resume Lasix 20mg and check BMP in one week. Continue Metoprolol 50mg BID, stop Verapamil and Start Norvasc 5mg daily, ? Resume Losartan if BP allows. Follow up with Dr. Albert in 2 months. (HFpEF) heart failure with p reserved ejection fraction 04/25/2017 10/01/2021 Overview (08/09/2020): Last Assessment & Plan: Chronic Diastolic Heart [...] up with Dr. Albert in 2 months. Closed fracture of shaft of fourth metacarpal bone 07/01/2015 12/07/2018 PVC (premature ventricular contraction) 04/03/2015 05/22/2023 Overview (02/05/2021): Overview: Overview: The majority PVCs have RBBB,LAF origin(verapamil sensitive). Two beats of RVOT PVCs Chest pain 12/16/2014 11/19/2022 Overview (04/11/2022): Seen in ED 07/2020 for chest pain and uncontrolled BP, substernal pressure w/ assocaitaed diaphoresis, nausea, dyspnea. Cardiac workup negative, D dimer elevated but CTPE w/o clots. Discharged w/ BP meds and cardiology f/u. Seen in hospital discharge clinic 08/21, restarted on Nexium for GERD 09/2020: intermittent chest discomfort, not significantly improved w/ PPI 03/2022: chest pain lasting 2-3 hours over last week, patient attributes to resuming medications, has not tried nitro Assessment & Plan (04/11/2022 9:54 PM COSMETIC CONSULTANT): Unclear cause of chest pain -Resume prn nitro -f/u cardiology Assessment & Plan (10/21/2020 11:41 AM CDT): Unclear cause, no significant response to PPI, following w/ cardiology -Will assess symptoms of PPI, if worsened, will consider further GI w/u Allergic rhinosinusitis 07/10/200904/25 Hypogonadism male 07/10/2009 04/09/2021 Obstructive sleep apnea 07/10/200909/21 Depression 07/10/2009 04/09/2021 Overview (02/05/2021): Severe depressed mood w/ SI, has lost multiple family members over the last year most recently lost his mother to COVID19 Last Assessment & Plan: Severe major depression w/ SI -Patient hesitant to go to ED/inpatient for treatment due to COVID -Clinic SW spoke to patient, will follow up with psych Hypertension, essential 07/10/200903/24 Overview (02/05/2021): Chronic. Presumed essential, possible causes of secondary htn include JULITO. No symptoms of concern. Current meds: -Losartan 100mg daily Home BP readings elevated, had stopped all medications late 2019 due to side effects Last Assessment & Plan: Above goal -Continue Losartan -Resume HCTZ 25mg daily Esophageal reflux 08/30/2006 05/22/2023 Overview (04/09/2021): Symptoms of chest discomfort chronically w/o alarm sts Has been on Nexium since 07/2020, no significant improvement 03/2021: tapered of nexium, no significant heartburn, chest discomfort Assessment & Plan (10/21/2020 11:36 AM CDT): -Will taper nexium and follow up on response Extrinsic asthma 08/30/2006 04/09/2021 Other diseases of nasal cavity and sinuses 08/30/2006 09/20/2018 Other urticaria 08/30/2006 09/20/2018 Adverse effect of drug, medi cinal and biological substance 08/30/2006 10/21/2020 Obesity 08/30/2006 05/22/2023 Other diseases of nasal cavity and sinuses 08/30/2006 10/05/2021 Other urticaria 08/30/2006 10/05/2021 Oral ulcer 09/20/2018 Odynophagia 09/20/2018 Coronary artery disease invo lving [place] coronary artery of [place] heart without angina pectoris 10/21/2020 Assessment & Plan (10/02/2019 11:07 AM CDT): Pt continues to have chest pain with [...] has a repeat CT in one week. Assessment & Plan (07/27/2019 9:59 AM COSMETIC CONSULTANT): Chest pain with Nadine at OSH with moderate irreversible perfusion abnormality present in the inferolateral region(s) of moderate intensity. Reviewed with Dr. Roosevelt dhillon antianginals and resume full dose PPI. Follow up with Dr. Albert in two months. Continue Metoprolol 50mg BID and change to Norvasc 5mg Daily and resume Losartan at next appointment. Per NSGY note Ok to resume ASA baby daily and continue statin. Diastolic dysfunction 2020 Assessment & Plan (07/27/2019 9:56 AM COSMETIC CONSULTANT): Chronic Diastolic Heart Failure: Stable, resume Lasix 20mg and check BMP in one week. Continue Metoprolol 50mg BID, stop Verapamil and Start Norvasc 5mg daily, ? Resume Losartan if BP allows. Follow up with Dr. Albert in 2 months. Chronic obstructive pulmonary disease 09/20/2018 Major depressive disorder in full remission 12/07/2018 SOB (shortness of breath) on exertion 06/30/2020 Immunizations Immunization Administration Dates Next Due Comirmargot Covd-19 Mrna Vacci ne (Nucleoside Modified) 08/02/2023 Covid [employer] primary monoval ent 12+ yr 0.3mL Purple cap 04/25/2021,07/23/2020 INFLUENZA VACCINE 03/20/2015 INFLUENZA VACCINE, QUADR. (F LUZONE; FLULAVAL; FLUARIX; AFLURIA QUADRIVALENT; 6MO+), 0.5 ML (IIV4) 05/19/2023,04/08/2020,02/22/2019,2017 RSV AREXVY 60YR+ 0.5ML 08/02/2023 TDAP (7yrs+) 05/19/2023,12/27/2009 Zoster Hzv Vacc Recombinant Inj Im 08/02/2023, iNFLUENZA VACCINE, RECOM-SAGASTUME, QUADR. (FLUBLOCK QUADRIVALENT; 18Y+) (RIV4) 04/08/2022,04/09/2021 Family History Medical History Relation Name Comments Hypertension Brother 1 Dennys Other Brother 2 Reed polycythemia, p rostatectomy 60s Alzheimer's Disease Father 85- in sleep Macular Degeneration Father 85- in sleep Hypertension Mother Macular Degeneration Mother Cancer - Skin, Melanoma Neg Hx Cancer - Skin, Non Melanoma Neg Hx Relation Name Status Comments Brother 1 Dennys Alive Brother 2 Reed Alive Father 85- in sleep Mother Alive Social History Tobacco Use Types Packs/Day Years Used Date Smoking Tobacco: Never Smokeless Tobacco: Never Tobacco Cessation:Counseling Given: Not Answered Alcohol Use Standard Drinks/Week Comments Not Currently 0 (1 standard drink = 0.6 oz pur e alcohol) former some alcohol PHQ-2 Answer Date Recorded Patient Health Questionnaire-2 Score 2 05/19/2023 Sex and Gender Information Value Date Recorded Sex Assigned at Not on file Legal Sex Male 2:13 PM COSMETIC CONSULTANT Gender Identity Not on file Sexual Orientation Not on file 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 Not on file Not on file Not on file Last Filed Vital Signs Vital Sign Reading Time Taken Comments Blood Pressure 150/88 05/19/2023 9:31 AM COSMETIC CONSULTANT Pulse 83 05/19/2023 9:31 AM COSMETIC CONSULTANT Temperature 35.9 C (96.6 F) 05/19/2023 9:31 AM COSMETIC CONSULTANT Respiratory Rate 14 03/04/2021 10:1 5 AM CDT Oxygen Saturation 95% 05/19/2023 9:31 AM COSMETIC CONSULTANT Inhaled Oxygen Concentration - - Weight 144.1 kg (317 lb 9.6 oz) 05/19/2023 9:31 AM COSMETIC CONSULTANT Height 177.8 cm (5' 10) 05/19/2023 9:31 AM COSMETIC CONSULTANT Body Mass Index 45.57 05/19/2023 9:31 AM COSMETIC CONSULTANT Plan of Treatment Health Maintenance Due Date Last Done Comments COLOGUARD (AGES 45-75) - COLON CA SCREENING [address] COLONOGRAPHY - COLON CA SCREENING 1960 FIT - COLON CA SCREENING 1960 FLEX SIG - COLON CA SCREENING 1960 PNEUMOCOCCAL VACCINE 50+ (1 of 1 - PCV) 07/25/2009 COVID-19 VACCINE ( - 2023- season) 2024 08/02/2023, 04/25/2021, 08/13/2020, Additional history exists DEPRESSION SCREENING 05/24/2024 12/24/2022, 11/11/2022, 04/08/2022 COLONOSCOPY - COLON CA SCREENING 03/02/2027 03/02/2017 Colorectal Cancer Screening 03/02/2027 SCREENING FOR DIABETES 05/02/2027 , 05/02/2024, 05/02/2024, Additional history exists DTAP/TDAP/TD VACCINES (3 - Td or Tdap) 05/19/2033 05/19/2023, 12/27/2009 HIV SCREENING Completed 08/19/2018 Respiratory Syncytial Virus (RSV) Vaccine Pt: or over 60 yrs Completed 08/02/2023 ZOSTER VACCINE Completed 08/02/2023, 05/19/2023 HEPATITIS C SCREENING Completed 02/15/2024, 019 INFLUENZA VACCINE Completed 02/25/2024, , 04/08/2022, Additional history exists HEPATITIS B VACCINE Aged Out No longe r eligible based on patient's age to complete this topic HIB VACCINE Aged Out No longer eligi ble based on patient's age to complete this topic HPV VACCINE Aged Out No longer eligi ble based on patient's age to complete this topic MENINGOCOCCAL (Group B) VACCINE SHARED DECISION-MAKING Aged Out No longer eligible based on patient's age to complete this topic MENINGOCOCCAL GROUPS A/C/Y/W VACCINE Aged Out No longer eligible based on patient's age to complete this topic Goals Goal Patient Goal Type Associated Problems Recent Progress Patient-Stated? Author Mobility General No change( 020 10:49 AM COSMETIC CONSULTANT) No Sierra Martinez RN Note: Expected end date: 05/23/2020 The goal is to maintain or improve your mobility at the optimum level for you. Interventions: Medical Devices Implanted Type Area Calciner Operator Helper Device Identifier Shelf Expiration Date Model / Serial / Lot Stent Uret 6fr 26cm Pgtl Crv Tpr Tip Implanted:Qty: 1 on 10/13/2018 by Akosua Rai DO at [facility] [employer] 04/18/2021 [id number] / / [id number] K Wire Implanted:Qty: 1 on 03/19/2020 by Tesfaye Fernandes MD at [facility] Left: Finger [employer] 01/21/2029 [id number] / / [id number] Description:left small finge r Tendon Anchors Implanted:Qty: 1 on 03/04/2021 by Gaston Gray MD at [facility] Left: Shoulder [employer] 2023 [id number] / [id number] Bioinductive Implant With Arthro Del Pkg Med Implanted:Qty: 1 on 03/04/2021 by Gaston Gray MD at [facility] Left: Shoulder [employer] 10/13/2023 [id number] / / [id number] Bone Anchors Implanted:Qty: 1 on 03/04/2021 by Gaston Gray MD at [facility] Left: Shoulder [employer] 10/11/2023 [id number] / / [id number] Procedures Procedure Name Priority Date/Time Associated Diagnosis Comments HEMOGLOBIN A1C Routine 05/26/2023 9:22 AM COSMETIC CONSULTANT Hypertension, essential HEPATITIS C AB SCREEN RFLX NAAT QUANT STAT 08/19/2018 7:04 PM CDT HIV-1 HIV-2 ANTIGEN/ANTIBODY STAT 08/19/2018 7:04 PM CDT from Last 3 Months or Most Recently Relevant to Health Maintenance Results * (ABNORMAL) HEMOGLOBIN A1C (05/26/2023 9:22 AM COSMETIC CONSULTANT) Hemoglobin A1c 6.9(H) <5.7 % of total Hgb [facility] Comment: For someone without known diabetes, a hemoglobin A1c value of 6.5% or greater indicates that they may have diabetes and this should be confirmed with a follow-up test. For someone with known diabetes, a value <7% indicates that their diabetes is well controlled and a value greater than or equal to 7% indicates suboptimal control. A1c targets should be individualized based on duration of diabetes, age, comorbid conditions, and other considerations. Currently, no consensus exists regarding use of hemoglobin A1c for diagnosis of diabetes for children. Test Performed at: [facility] [id number] DIVINE MONTEZ MD Blood BLOOD SPECIMEN / Unknown 05/26/2023 9:22 AM COSMETIC CONSULTANT 05/26/2023 9:22 AM COSMETIC CONSULTANT Kurt Raymundo MD LAB - CHEMISTRY ORDERABLES Fi nal Result [facility] [id number] [place] [address] * HIV-1 HIV-2 ANTIGEN/ANTIBODY (08/19/2018 7:04 PM CDT) HIV Antigen/Antibod y 1 & 2 Non-reacti ve Non-react azam 08/19/2018 7:49 PM CDT [facility] Comment: Neither HIV-1 p24 Antigen nor HIV-1/HIV-2 Antibodies are detected. Blood BLOOD SPECIMEN / Unknown Venipuncture / Unknown 08/19/2018 7:04 PM CDT 08/19/2018 7:09 PM CDT us Jose Vizcaino MD LAB - HEMATOLOGY ORDERABLES Vanessa l Result Performing Organization Address [facility] Co de Phone Number [address] [phone] * HEPATITIS C AB SCREEN RFLX NAAT QUANT (08/19/2018 7:04 PM CDT) Hepatitis C Antibody Non-react azam Non-reac tive 08/19/2018 7:56 PM CDT [facility] Comment: Hepatitis C Antibody screen indicates no serologic evidence of past or current infection with Hepatitis C Virus. Patients with unexplained liver disease who are immunocompromised or suspected of having acute Hepatitis C infection may benefit from Nucleic Acid Test (DARRION) for Hepatitis C Viral RNA to confirm Hepatitis C status. Blood BLOOD SPECIMEN / Unknown Venipuncture / Unknown 08/19/2018 7:04 PM CDT 08/19/2018 7:09 PM CDT us Jose Vizcaino MD LAB - CHEMISTRY ORDERABLES Final Result Performing Organization Address [facility] [place] [address], [facility] [phone] from Last 3 Months or Most Recently Relevant to Health Maintenance Insurance [employer]THE[employer] Advance Directives * Full Code (Latest Code Status on File) Date Activated Date Inactivated Comments 05/15/2019 5:48 PM 05/16/2019 2:15 PM * Full Code Date Activated Date Inactivated Comments 05/15/2019 6:57 AM 05/15/2019 5:47 PM * Full Code Date Activated Date Inactivated Comments 11/01/2018 12:48 PM 11/01/2018 10:29 PM * Full Code Date Activated Date Inactivated Comments 08/19/2018 9:54 PM 08/23/2018 4:03 PM * Full Code Date Activated Date Inactivated Comments 08/19/2018 8:35 PM 08/19/2018 9:54 PM Care Teams Graduate Civil Engineer Relationship Specialty Start Date End Date Cecilia Manuel, RETURNS SUPERVISOR-RELIGIOUS STUDIES PROFESSOR [facility] [place] [address] PCP - General Nurse Practitioner 04/12/24 Dominick Lyon MD 3 [facility] [address] [facility] [place] [address] Station Baggage Porter Internal Medicine 02/18/21 Gaston Gray MD [address] [facility] [place] [address] Surgeon Orthopedic Surgery 04/07/22
[2024-11-28 12:24] LABS: Hematocrit 56.1 % (42.0-52.0); Hemoglobin 18.4 g/dL (14.0-18.0); Mean Corpuscular HGB Conc 32.8 g/dl (32-36); Mean Corpuscular Hemoglobin 31.1 pg (26-34); Mean Corpuscular Volume 94.8 fl (80-100); Platelet Count Result 254 k/mm3 (150-375); Red Blood Count 5.92 M/mm3 (4.6-6.20); White Blood Count 6.9 K/mm3 (4.5-10.0)
[2024-11-28 12:48] LABS: Alanine Aminotransferase 19 U/L (6-50); Albumin Level 4.6 g/dL (3.5-5.1); Alkaline Phosphatase 113 U/L (38-126); Anion Gap 11 mmol/L (4-12); Aspartate Amino Transferase 24 U/L (17-59); Bilirubin,Total 1.8 mg/dL (0.2-1.3); Blood Urea Nitrogen 21 mg/dL (9-20); Calcium 9.9 mg/dL (8.4-10.2); Carbon Dioxide 27 mmol/L (22-30); Chloride 103 mmol/L (98-107); Estimated Glomerular Filt Rate > 60; Glucose 211 mg/dL (65-110); Potassium 4.0 mmol/L (3.4-5.0); Sodium 141 mmol/L (137-145); Total Protein 7.7 g/dL (6.3-8.2)
[2024-11-28 14:05] LABS: INR 0.9; Prothrombin Time 12.4 Seconds (11.1-14.7)
== END 2024-11-28 11:54 | disposition home or self-care (01) ==
PROVIDERS: PCP Registered Nurse; Visit Provider Nurse Practitioner
DX: K75.81 Nonalcoholic steatohepatitis (NASH) (principal); R74.8 Abnormal levels of other serum enzymes
CPT/HCPCS: 36415; 80048; 80076; 85027; 85610

== ENCOUNTER 2025-01-06 12:49 | Emergency (ER) | payer MEDICARE, SELFPAY ==
--- OUTSIDE RECORDS SUMMARY | 2025-01-06 12:51 | XMS_ITS | Encounter Summary ---
Author Organization [facility] Address [address] [facility] [place] [address] Care Team Providers Care Supervisor Purification Name Role Phone Kurt Raymundo MD Primary Care Provider [phone] Dominick Lyon MD Unavailable [phone] Gaston Gray MD Unavailable Cecilia Manuel Primary Care Provider Reason for Referral * Consultation (Routine) - Closed Specialty Diagnoses / Procedures Referred By Freddy martínez Referred To Contact ENT-Otolaryngology Diagnoses JULITO (obstructive sleep apnea) Cecilia Manuel APRN-CNP [address] [place] [address] Phone: tel: fax: [facility] - ENT [address] [place] [phone] Phone: tel: fax: Referral ID Status Reason Start Date Expiration Date V isits Requested Visits Authorized [id number] Closed Specialty Services Required 04/06/2024 04/06/2025 1 1 P MAKER COOK Encounter Details Date Type Department Care Team (Latest Contact Info) Description 04/06/2024 Transcribe Orders [facility] - Centralized Scheduling [facility] [place] [address] Cecilia Manuel, BREASTFEEDING EDUCATOR-NUTRITION THERAPIST [address] [place] [address] JULITO (obstructive sleep apnea) Social History Tobacco [...] on file Legal Sex Male 2:13 PM SYRUP MAKER COOK Gender Identity Not on file Sexual Orientation [...] Mobility General No change( 020 10:49 AM SYRUP MAKER COOK) Sierra Talley, PIETER Note: Expected end date: 05/23/2020 The goal is to maintain or improve your mobility at the optimum level for you. Interventions: documented as of this encounter Visit Diagnoses Diagnosis JULITO (obstructive sleep apnea)- Primary Obstructive sleep apnea (adult) (pediatric) documented in this encounter Care Teams Supervisor Purification Relationship Specialty Start Date End Date Kurt Raymundo MD [address] [facility] 2L DIV [place] [address] PCP - General Internal Medicine 06/30/20 04/11/24 Cecilia Manuel APRN-NUTRITION THERAPIST [address] [place] [address] PCP - General Nurse Practitioner 04/12/24 Dominick Lyon MD [address] [place] [phone] Guest Relations Receptionist Internal Medicine 02/18/21 Gaston Gray MD [address] [facility] DIV [place] [address] Surgeon Orthopedic Surgery 04/07/22 documented as of this encounter
--- OUTSIDE RECORDS SUMMARY | 2025-01-06 12:51 | XMS_ITS | Encounter Summary ---
Author Organization [facility] Address [address] [place] [address] Care Team Providers Care Dramatic Reader Name Role Phone Katherin Rodríguez MD Unavailable Unavailabl e Kurt Raymundo MD Primary Care Provider [phone] Dominick Lyon MD Unavailable [phone] Gaston Gray MD Unavailable Cecilia Manuel FINISHED GOODS PLANNER-ELECTRICAL RESEARCH ENGINEER Primary Care Provider Reason for Visit * Reason Onset Date Comments Refill Request 10/27/2021 Encounter Details Date Type Department Care Team (Late st Contact Info) Description 10/27/2021 Telephone [facility] General Internal Medicine [address] [place] [address], [place] [address] Kurt Raymundo MD [address] [place] [address] OF [facility] [place] [address] Refill Request Social History Tobacco Use Types [...] file Legal Sex Male 2:13 PM SENIOR TECHNICAL EDITOR Gender Identity Not on file Sexual Orientation [...] Mobility General No change( 020 10:49 AM SENIOR TECHNICAL EDITOR) No Sierra Martinez, PIETER Note: Expected end date: 05/23/2020 The goal is to maintain or improve your mobility at the optimum level for you. Interventions: documented as of this encounter Visit Diagnoses Not on filedocumented in this encounter Care Teams Dramatic Reader Relationship Specialty Start Date End Date Kurt Raymundo MD [address] OF GEN [place] [address] PCP - General Internal Medicine 06/30/20 04/11/24 Cecilia Manuel APRN-ELECTRICAL RESEARCH ENGINEER Formerly named [facility] [place] [address] PCP - General Nurse Practitioner 04/12/24 Katherin Rodríguez MD Physician Cardiology 03/14/20 04/06/22 Dominick Lyon MD [address] [phone] Investigations Director Internal Medicine 02/18/21 Gaston Gray MD [address] [place] [address] OF [place] [address] Surgeon Orthopedic Surgery 04/07/22 documented as of this encounter
--- OUTSIDE RECORDS SUMMARY | 2025-01-06 12:52 | XMS_ITS | Encounter Summary ---
Author Organization [facility] Address [address] [place] [address] Care Team Providers Care Border Machine Operator Name Role Phone Mar Cecilia Kati HIGUERA Primary Care Provider [phone] Encounter Details Date Type Department Care Team (Latest Contact Info) Description 12/21/2024 Results Follow-Up [facility] [address] Phyllis Frye RN USE ECHOCARDIOGRAM W CON Social History Tobacco Use Types Packs/Day Years Used Date Smoking Tobacco: Never Smokeless Tobacco: Never Alcohol Use Standard Drinks/Week Comments Not Currently 0 (1 standard drink = 0.6 oz pure alcohol) Very rarely, once or twice a year PHQ-2 Answer Date Recorded Patient Health Questionnaire-2 Score 3 11/29/2024 Hunger Vital Sign Answer Date Recorded Within [...] Assessment Author Status No 08/01/2020 11:18 PM RUBBER COMPOUNDER Acti ve * RETIRED Are you blind or do you have serious difficulty seeing, even when wearing glasses? Answer Date of Assessment Author Status No 08/01/2020 11:18 PM RUBBER COMPOUNDER Acti ve * Do you have serious difficulty walking or climbing stairs? Answer Date of Assessment Author Status No 08/01/2020 11:18 PM RUBBER COMPOUNDER Palma David Active * Do you have difficulty dressing or bathing? Answer Date of Assessment Author Status No 08/01/2020 11:18 PM RUBBER COMPOUNDER Palma David Active * Because of a physical, mental, or emotional condition, do you have difficulty doing errands alone such as visiting a doctor's office or shopping? Answer Date of Assessment Author Status No 08/01/2020 11:18 PM RUBBER COMPOUNDER Palma David Active documented as of this encounter Mental Status * Because of a physical, mental, or emotional condition, do you have serious difficulty concentrating, remembering, or making decisions? Answer Entry Date Author Status No 08/01/2020 11:18 PM RUBBER COMPOUNDER Palma David Active documented in this encounter Plan of Treatment Upcoming Encounters Date Type Department Care Team (Late st Contact Info) Description 01/11/2025 11:15 AM CDT Appointment [facility] Ultrasound [facility] [place] [address] Linda Dean APNP [address] [place] [address] 03/02/2025 8:20 AM CDT Office Visit [facility] Family & Internal Medicine - [address] [phone] Cecilia Manuel APNP [address] [place] [address] 03/09/2025 1:00 PM CDT Office Visit [facility] [phone] Dominick Lyon MD [address] [facility] [place] [address] [place] [phone] documented as of this encounter Visit Diagnoses Not on filedocumented in this encounter Additional Health Concerns Assessment Noted Time PHQ-9 Depression Total Score: 10 025 8:38 AM CDT documented as of this encounter Care Teams Border Machine Operator Relationship Specialty Start Date End Date Cecilia Manuel APNP [address] [place] [address] PCP - General NURSE PRACTITIONER 02/15/24 documented as of this encounter
--- OUTSIDE RECORDS SUMMARY | 2025-01-06 12:52 | XMS_ITS | Encounter Summary ---
Author Organization [facility] Address [address] [place] [address] Care Team Providers Care Stencil Cutter Machine Name Role Phone Jeffrey Edwards MD Primary Care Provider [phone] Katherin Rodríguez MD Unavailable Unavailabl e Kurt Raymundo MD Primary Care Provider Dominick Lyon MD Unavailable Gaston Gray MD Unavailable Cecilia Manuel RICKSHAW DRIVER-DISTRIBUTION CENTER ASSOCIATE Primary Care Provider Encounter Details Date Type Department Care Team (Late st Contact Info) Description 03/02/2019 Telephone [facility] Endocrinology, Diabetes and Metabolism [address] [place] [address] Doug Thompson MD [address] [place] [address] Social History Tobacco Use Types Packs/Day Years Used Date Smoking Tobacco: Never Smokeless Tobacco: Never Alcohol Use Standard Drinks/Week Comments No 0 (1 standard drink = 0.6 oz pur e alcohol) former some alcohol Sex and Gender Information Value Date Recorded Sex Assigned at Not on file Legal Sex Male 2:13 PM DISTRIBUTION CENTER ASSOCIATE Gender Identity Not on file Sexual Orientation [...] schedule earlier appt. Patient Call Back number: [phone] documented in this encounter Plan of Treatment Not on file documented as of this encounter Visit Diagnoses Not on filedocumented in this encounter Care Teams Stencil Cutter Machine Relationship Specialty Start Date End Date Jeffrey Edwards MD PCP - General 09/01/17 06/29/20 Kurt Raymundo MD [address] INTERNAL [place] [address] PCP - General Internal Medicine 06/30/20 04/11/24 Cecilia Manuel, RICKSHAW DRIVER-DISTRIBUTION CENTER ASSOCIATE [address] [place] [address] PCP - General Nurse Practitioner 04/12/24 Katherin Rodríguez MD Physician Cardiology 03/14/20 04/06/22 Dominick Lyon MD 3 [facility] Suite [facility] [place] [address] Pattern Chain Maker Supervisor Internal Medicine 02/18/21 Gaston Gray MD [address] [facility] OF ORTHOPEDIC [place] [address] Surgeon Orthopedic Surgery 04/07/22 documented as of this encounter
--- OUTSIDE RECORDS SUMMARY | 2025-01-06 12:52 | XMS_ITS | Encounter Summary ---
Author Organization [facility] Address [address] [place] [address] Care Team Providers Care Shoeblack Name Role Phone Breanne Blakely MD, Kurt Primary Care Provider [phone] Cecilia Manuel Primary Care Provider [phone] Encounter Details Date Type Department Care Team (Late st Contact Info) Description 08/09/2020 Hospital Follow-up Call [facility] Telemetry Unit [address] [facility] [place] [address] Quin Reece, RN Social History Tobacco Use Types Packs/Day [...] COVID-19? No / Unsure 08/01/2020 3:52 PM MOBILE UNIT ASSISTANT documented as of this encounter Functional Status * RETIRED Are you deaf or do you have serious difficulty hearing Answer Date of Assessment Author Status No 08/01/2020 11:18 PM MOBILE UNIT ASSISTANT Acti ve * RETIRED Are you blind or do you have serious difficulty seeing, even when wearing glasses? Answer Date of Assessment Author Status No 08/01/2020 11:18 PM MOBILE UNIT ASSISTANT Acti ve * Do you have serious [...] Info) Description 01/11/2025 11:15 AM CDT Appointment [facility] Ultrasound [address] [place] [address] Linda Dean APNP [address] [place] [address] 03/02/2025 8:20 AM CDT Office Visit [facility] Family & Internal Medicine - [address] [phone] Cecilia Manuel APNP [address] [place] [address] 03/09/2025 1:00 PM CDT Office Visit [facility]-[address] [phone] Dominick Lyon MD 3 [facility] [address] [place] [address] [place] [phone] documented as of this encounter Visit Diagnoses Not on filedocumented in this encounter Care Teams Shoeblack Relationship Specialty Start Date End Date Kurt Raymundo MD PCP - General INTERNAL MEDICINE 08/02/20 02/14/24 Cecilia Manuel APNP [facility] [place] [address] PCP - General NURSE PRACTITIONER 02/15/24 documented as of this encounter
--- OUTSIDE RECORDS SUMMARY | 2025-01-06 12:52 | XMS_ITS | Clinical Summary ---
Author Organization [facility] Address [facility] [place] [address] Care Team Providers Care Education Managers Name Role Phone Cecilia Manuel Primary Care Provider [phone] Allergies Active Allergy Reactions Criticality Noted Date [...] mouth daily. Active rosuvastatin (CRESTOR) 10 MG tabletIndications: Mixed hyperlipidemia Take 1 tablet (10 mg total) by mouth nightly at bedtime. 90 tablet 2 02/25/20 24 Active nitroglycerin (NITROSTAT) 0.[address] 1 tablet (0.4 mg total) under the tongue every 5 (five) minutes as needed for Chest Pain (If taking 3rd dose, contact 911.). 25 tablet 1 02/25/20 24 Active Na sulfate-K sulfate-Mg sulfate (SUPREP BOWEL PREP KIT) 17.5-3.13-1.6 GM/177ML SolutionIndication s:Screening for colon cancer,Encounter for colonoscopy due to history of colonic polyp Take 177 mLs by mouth every 12 (twelve) hours. Per GI instructions 354 mL 04/07/20 24 Active ezetimibe (ZETIA) 10 MG tablet TAKE 1 TABLET BY MOUTH EVERY DAY 90 tablet 1 09/07/19 25 Active escitalopram (LEXAPRO) 20 MG tabletIndications: Severe episode of recurrent major depressive disorder, without psychotic features ([facility]) TAKE 1 TABLET BY MOUTH EVERY DAY 90 tablet 11/03/19 25 Active carvedilol (COREG) 12.5 MG tabletIndications: Hypertension, essential TAKE 1 TABLET BY MOUTH 2 TIMES DAILY. 180 tablet 11/23/19 25 Active hydroCHLOROthiazid e (HYDRODIURIL) 25 MG tabletIndications: Hypertension, essential TAKE 1 TABLET BY MOUTH EVERY DAY IN THE MORNING 90 tablet 11/23/19 25 Active JARDIANCE 25 MG tabletIndications: Type 2 diabetes mellitus with hyperglycemia, without long-term current use of insulin ([facility]) TAKE 1 TABLET (25 MG TOTAL) BY MOUTH DAILY. 90 tablet 1 11/23/19 25 Active losartan (COZAAR) 50 MG tablet TAKE 1 TABLET BY MOUTH EVERY DAY 90 tablet 1 11/29/19 25 Active REZDIFFRA 100 MG Tab 11/29/19 25 Active tirzepatide (MOUNJARO) 2.5 MG/0.5ML injectionIndicatio ns:Diabetes Mellitus Inject 2.5 mg into the skin every 7 days. Indications: Diabetes 2 mL 1 11/30/19 25 Active amLODIPine (NORVASC) 10 MG tabletIndications: Hypertension, essential TAKE 1 TABLET BY MOUTH EVERY DAY 90 tablet 12/05/19 25 Active Active Problems Problem Noted Date Diagnosed Date Microalbuminuria due to type 2 diabetes mellitus ([facility]) 11/29/2024 Stage 2 chronic kidney disease 06/22/2024 Microalbuminuria 04/11/2024 Renal cyst 04/11/2024 Hepatic steatosis 03/22/2024 Non-insulin dependent type 2 diabetes mellitus ([facility]) 10/08/2023 JULITO (obstructive sleep apnea) 08/22/2021 [...] of oswald th femoral veins with thrombophlebitis ([facility]) 09/04/2019 Overview (08/03/2020): Last Assessment & Plan: No blood thinners at this time, follow up PCPl. S/P craniotomy 08/02/2019 Subdural empyema ([facility]) 07/29/2019 Coronary artery disease invo lving ohog[place] coronary artery of [place]og[place] heart without angina pectoris 07/13/2019 Overview (08/03/2020): [...] Albert in 2 months. Macular degeneration 07/13/2019 Shoulder joint pain 03/08/2019 Hyperparathyroidism ([facility]) 09/20/2018 Positive CLAY (antinuclear antibody) 09/07/2018 Actinic keratosis 03/16/2018 Lentigines 03/16/2018 (HFpEF) heart failure with p reserved ejection fraction ([facility]) 04/25/2017 Overview (08/03/2020): Last Assessment & Plan: [...] OA (osteoarthritis) of knee 05/20/2011 Parkinson disease ([facility]) 10/29/2010 Depression 07/10/2009 Overview (08/03/2020): Severe [...] goal -Continue Losartan -Resume HCTZ 25mg daily Adverse effect of drug, medicinal and biological [...] exertion 07/13/2019 09/02/2020 Chest pain 07/05/2019 02/15/2024 Subdural hematoma 07/05/2019 11/29/2024 Heartburn 12/30/2016 02/15/2024 Encounter for preventive health examination 06/24/2015 02/02/2020 Allergic rhinosinusitis 07/10/200901/23 Hypogonadism male 07/10/2009 12/07/2024 Extrinsic asthma (HHS/HCC) 08/30/2006 0 02/15/2024 Encounters Date Type Department Care Team Description 12/25/2024 Scan [facility] Scanned, Doc Med Group 12/25/2024 Scan [facility] BUSINESS OFFICE [address] [place] [address] Scanned, Doc Pccl 12/25/2024 Misc Documentation [facility] [address] [place] [address] Gaston Kennedy MD Error 12/21/2024 8:42 AM CDT - 12/21/2024 11:59 PM CDT Hospital Encounter [facility] [place] [address] Dominick Lyon MD Discharge Disposition: Home or Self Care (Routine Discharge) 12/21/2024 Misc Documentation [facility], [place] [address] Gaston Kennedy MD Research 12/21/2024 Results Follow-Up [facility] [address] Phyllis Frye RN USE ECHOCARDIOGRAM W CON 12/21/2024 Travel 12/13/2024 Results Follow-Up [facility] Family & Internal [address] [phone] Luciana Mendoza FNP CBC W/DIFF AUTOMATED, LIPID PANEL 12/11/2024 8:40 AM CDT Laboratory Only [facility] Internal [address] [phone] Cecilia Manuel APNP 12/11/2024 Travel 12/11/2024 Orders Only [facility] [address] [address] Dominick Lyon MD 12/08/2024 8:15 AM CDT Office Visit [facility] [phone] Dominick Lyon MD CHF (Follow up); Coronary Artery Disease; Hypertension 12/08/2024 Travel 11/29/2024 8:20 AM CDT Office Visit [facility] Internal [address] [phone] Cecilia Manuel APTONY Depression; Diabetes 11/29/2024 Travel 11/28/2024 Scan HEALTH INFO SRVCS Scanned, Doc Med Group Lab (SCAN) from Last 3 Months Immunizations Immunization Administration Dates Next Due Arexvy [...] Given: No Alcohol Use Standard Drinks/Week Comments Not Currently [...] Sign Reading Time Taken Comments Blood Pressure 124/78 12/08/2024 8:09 AM CDT Pulse 69 12/08/2024 8:09 AM CDT Temperature 36.5 C (97.7 F) 11/29/2024 8:27 AM CDT Respiratory Rate 18 11/29/2024 8:27 AM CDT Oxygen Saturation 97% 12/08/2024 8:09 AM CDT Inhaled Oxygen Concentration - - Weight 142 kg (313 lb) 12/08/2024 8:09 AM CDT Height 177.8 cm (5' 10) 12/08/2024 8:09 AM CDT Body Mass Index 44.91 12/08/2024 8:09 AM CDT Plan of Treatment Upcoming Encounters Date Type Department Care Team (Late st Contact Info) Description 01/11/2025 11:15 AM CDT Appointment [facility] Ultrasound [address] [facility] [address] [place] [address] Linda Dean APNP [address] [place] [address] 03/02/2025 8:20 AM CDT Office Visit [facility] Family & Internal Medicine - [place] [id number] [place] [phone] Cecilia Manuel APNP [address] [place] [address] 03/09/2025 1:00 PM CDT Office Visit [facility]-[address] [phone] Dominick Lyon MD 3 [facility] [address] [place] [phone] Health Maintenance Due Date Last Done Comments Colorectal Cancer Screening Colonoscopy (10 Years) 1960 Diabetes: Retinopathy Eye Exam 07/25/1977 Kidney Health Evaluation 02/14/2025 02/15/2024 Hemoglobin A1C 06/01/2025 11/29/2024, 07/22, 05/02/2024, Additional history exists COVID-19 Vaccine ( season) 2025 08/02/2023, 08/02/2023, 04/25/2021, Additional history exists Postponed from 01/23/2024 (Patient Refused) Lipid Panel 12/11/2025 12/11/2024, 01/23, 08/02/2020 DTaP, Tdap and Td Vaccines (3 - Td or Tdap) 05/19/2033 05/19/2023, 12/27/2009 RSV Immunization or 60+ Years Completed 08/02/2023 Zoster Vaccines Completed 08/02/2023, 05/19/2023 Hepatitis C Completed 02/15/2024, 08/19/2018 Pneumococcal Vaccine: 50+ Years Completed 02/25/2024 PHQ-2 (Physician [place]) Completed 11/29/2024 Meningococcal B Vaccine Aged Out No l onger eligible based on patient's age to complete this topic Meningococcal Vaccine Aged Out No kamaljit cristina eligible based on patient's age to complete this topic RSV Immunizations Under 20 Months Aged Out No longer eligible based on patient's age to complete this topic Medical Devices Implanted Type Area Rn Document Improvement Specialist Device Identifier Shelf Expiration Date Model / Serial / Lot Synthes Low Profle Neuro Module Tray, Screw, Self Drilling, 4mm Implanted:Qty : 11 on 07/30/2019 by Navi Lind MD at [facility] Left: Cranial 400.834 / / Synthes Low Profle Neuro Module Tray, Plate Low Profile, 4 Hole, Ti, Striaght Implanted:Qty : 2 on 07/30/2019 by Navi Lind MD at [facility] Left: Cranial 400.504 / / Synthes Low Profle Neuro Module Tray, Plate, Adaption, Low Profile 5 Hole, Ti, Straight Implanted:Qty : 1 on 07/30/2019 by Navi Lind MD at [facility] Left: Cranial 400.518 / / Duramatrix Onlay Plus 3x3 - [id number] Implanted:Qty : 2 on 07/30/2019 by Navi Lind MD at [facility] N/A: Cranial RICKIE CRANIOMAXILLOFACIAL - DIV RICKIE CO 12/21/2021 [id number] / / [id number] Synthes Low Profle Neuro Module Tray, Plate, Adaption, Low Profile 5 Hole, Ti, Straight Implanted:Qty : 2 on 07/30/2019 by Navi Lind MD at [facility] Explanted:Qty : 1 on 07/30/2019 at [facility] N/A: Cranial 421.518 / / Synthes Low Profle Neuro Module Tray, Plate Low Profile, 4 Hole, Ti, Striaght Implanted:Qty : 4 on 07/30/2019 by Navi Lind MD at [facility] Explanted:Qty : 2 on 07/30/2019 at [facility] N/A: Cranial 421.504 / / Synthes Low Profle Neuro Module Tray, Screw, Self Drilling, 4mm Implanted:Qty : 14 on 07/30/2019 by Navi Lind MD at [facility] Explanted:Qty : 11 on 07/30/2019 at [facility] N/A: Cranial 400.834 / / Explanted Type Area Rn Document Improvement Specialist Device Identifier Shelf Expiration Date Model / Serial / Lot Pins Liberal Skull Adult Disposable - [id number] Explanted:Qty: 1 on 07/07/2019 by Navi Lind MD at [facility] Pin Scalp [employer] NARDA 03/08/2021 [id number] / / [id number] Pins Liberal Skull Adult Disposable - [id number] Explanted:Qty: 1 on 07/30/2019 by Navi Lind MD at [facility] AdaptlyA [employer]walk[employer]ES NARDA 01/31/2021 [id number] / / [id number] Synthes Low Profle Neuro Module Tray, Screw Emergency Explanted:Qty: 1 on 07/30/2019 at [facility] N/A: Cranial 400.854 / / Synthes Low Profle Neuro Module Tray, Screw, Self Drilling 4mm Explanted:Qty: 1 on 07/30/2019 at [facility] N/A: Cranial 400.834 / / Pins Quintero Skull Adult Disposable - [id number] Explanted:Qty: 1 on 07/30/2019 at [facility] Left: Scalp Sapheon 03/08/2021 [id number] / / [id number] Procedures Procedure Name Priority Date/Time Associated Diagnosis Comments USE ECHOCARDIOGRAM W CON Routine 025 9:28 AM CDT SOB (shortness of breath) Sleep apnea COLLECTION VENOUS BLOOD VENIPUNCTURE Routine 12/11/2024 8:46 AM CDT Chronic heart failure with preserved ejection fraction ([facility] HHS/HCC) Coronary artery disease involving [place] coronary artery of [place] heart without angina pectoris Class 3 severe obesity due to excess calories with serious comorbidity and body mass index (BMI) of 45.0 to 49.9 in adult ([facility]) Mixed hyperlipidemia LIPID PANEL Routine 12/11/2024 8:39 AM CDT Mixed hyperlipidemia CBC W/DIFF AUTOMATED Routine 12/11/2024 8:39 AM CDT Chronic heart failure with preserved ejection fraction ([facility]) Coronary artery disease involving [place] coronary artery of [place] heart without angina pectoris Class 3 severe obesity due to excess calories with serious comorbidity and body mass index (BMI) of 45.0 to 49.9 in adult ([facility]) ELECTROCARDIOGRAM (NON MIDMARK ACQUIRED) Routine 11/29/2024 9:30 AM CDT Chest tightness Dyspnea on exertion COLLECT.CAPILLARY (FNGR,HEEL,EAR) Routine 11/29/2024 8:25 AM CDT Type 2 diabetes mellitus with hyperglycemia, without long-term current use of insulin ([facility]) HEMOGLOBIN, GLYCOSYLATED Routine 11/29/2024 Type 2 diabetes mellitus with hyperglycemia, without long-term current use of insulin (CMS/HCC HHS/HCC) OUTSIDE LAB (SCAN ORDER) 11/28/2024 OUTSIDE PT/INR (SCAN ORDER) 11/28/2024 HEPATITIS C ANTIBODY Routine 02/15/2024 1:27 PM CDT Need for hepatitis C screening test from Last 3 Months or Most Recently Relevant to Health Maintenance Results * USE ECHOCARDIOGRAM W CON (12/21/2024 9:28 AM CDT) Anatomical Region Laterality Modality NA Echocardiogram 12/21/2024 8:48 AM CDT Narrative 12/21/2024 10:17 AM CDT Echocardiography Report Pat.Name: KIN WILLIAM Pat.ID: [id number] St.Date: 12/21/2024 Exam Time: 8:48:00 AM Study Type:ECHO WITH CARDIAC DOPPLER COMP Height: 70 in Weight: 313 lb BSA: 2.52 m2 Age: 3 1960,64Y Sex: M BP: 138/67 Sonogrphr: Marysol Nguyen Pat. Stat.:Outpatient CPT - 4: [id number] Reason for Study:Shortness of breath Procedures: 2D, M-mode, Doppler, Color Flow, Definity was used to enhance endocardial definition. The study quality is technically difficult. Race: W ++++++++++++++++++++++++++++++++++++ SUMMARY: ++++++++++++++++++++++++++++++++++++ The left ventricular size is normal. The left ventricular systolic function is normal. Estimated left ventricular ejection fraction is 65-70%. Mild to moderate concentric left ventricular hypertrophy. Left ventricular diastolic function is not reliably assessed. Wall motion appears normal in all segments. The left atrial volume is mildly increased (34- 41ml/M2). Right atrial size is mildly enlarged. Unable to reliably quantitate pulmonary systolic pressure. Technically difficult exam due to body habitus. No significant valvular abnormality. ++++++++++++++++++++++++++++++++++++ FINDINGS: ++++++++++++++++++++++++++++++++++++ LV: The left ventricular size is normal. The left ventricular systolic function is normal. Estimated left ventricular ejection fraction is 65-70%. Mild to moderate concentric left ventricular hypertrophy. Left ventricular diastolic function is not reliably assessed. WM: Wall motion appears normal in all segments. RV: The right ventricle not adequately visualized in all views. TAPSE = 23.1mm (<16 mm indicates systolic RV dysfunction). IVS: Intraventricular septum is normal. LA: The left atrial volume is mildly increased (34- 41ml/M2). RA: Right atrial size is mildly enlarged. IAS: Atrial septum is normal. MICHELL: No evidence of pericardial effusion. AO: Normal aortic root. PA: Unable to reliably quantitate pulmonary systolic pressure. SVn: Systemic veins not well visualized. Other: Technically difficult exam due to body habitus. AV: No evidence of aortic valve stenosis. No evidence of aortic valve regurgitation. The aortic valve not well visualized. MV: No evidence of significant mitral regurgitation. No evidence of mitral stenosis. PV: Pulmonic valve not well visualized. TV: No evidence of tricuspid regurgitation. No evidence of tricuspid valve stenosis. The tricuspid valve is not well visualized. ++++++++++++++++++++++++++++++++++++ MEASUREMENTS: ++++++++++++++++++++++++++++++++++++ DOPPLER TV Forward Flow TV E/A 0.96 Aortic Valve Cardiovascular 2.19 cm Aortic Root Roly 4.1 cm LVOT/AoV (MEDICARE NURSE) ( 0.86 Left atrial roly 4.64 cm AV Antegrade Flow Peak Velocity ( 0.86 m/s Mean Velocity ( 0.67 m/s Velocity Time I 15.3 cm AV Antegrade Flow Simplified Bernoulli Gradient pressu 3 mmHg Gradient pressu 1.9 mmHg AV Continuity Equation by Velocity Time Integral Aortic Valve Ar 3.43 cm2 AoV Area Index 1.36 Left Ventricle Stroke Volume ( 52.5 ml Cardiac Output 3.68 liter per minute LV Antegrade Flow Peak Velocity ( 0.74 m/s Mean Velocity ( 0.54 m/s Velocity Time I 13.9 cm LV Antegrade Flow Simplified Bernoulli Gradient pressu 2.2 mmHg Gradient pressu 1.2 mmHg Mitral Valve Mitral Valve E- 0.273 second Mitral Valve E 0.95 MV Antegrade Flow Mitral Valve E- 0.42 m/s Mitral Valve A- 0.45 m/s PV Antegrade Flow Peak Velocity ( 0.94 m/s Mean Velocity ( 0.63 m/s Velocity Time I 18 cm PV Antegrade Flow Simplified Bernoulli Gradient pressu 3.5 mmHg Gradient pressu 1.8 mmHg Tricuspid Valve Tricuspid Valve 0.36 m/s Tricuspid Valve 0.38 m/s 2D Left Ventricle LVIDd 4.44 cm (3.6-5.2) LVEDV BP 126 ml LV EDV 152 ml LVESV BP 39.5 ml LV ESV 61.9 ml LV EF 59.2 % LV EDV 106 ml Left Ventricula -17.3 % LV ESV 22.9 ml LV EF 78.4 % LV EF BP 68.8 % Left Ventricula -28.9 % Left Ventricula -23.1 % Left Atrium Left Atrium Vol 32.1 ml/m2 LA Biplane Left Atrium Vol 80.9 ml LA Single Plane Left Atrium alden 7.27 cm Left Atrium alden 6.87 cm Left Atrium Vol 67.8 ml Left Atrium Vol 93.4 ml LV Teichholz Interventricula 1.51 cm Left Ventricle 2.1 cm Left Ventricle 1.43 cm Heart rate 69 Heart beat per minute Right Atrium RA sys Area 17.7 cm2 Right Ventricle Right Ventricul 3.74 cm RVIDd 4.14 cm MMODE Tricuspid Valve Tricuspid annul 2.31 cm <Electronic Signature> 12/21/2024 10:17 AM Domiinck Lyon M.D. Procedure Note Dominick Lyon MD - 12/21/2024 Echocardiography Report Pat.Name: KIN WILLIAM Pat.ID: [id number] .Date: 12/21/2024 Exam Time: 8:48:00 AM Study Type:ECHO WITH CARDIAC DOPPLER COMP Height: 70 in Weight: 313 lb BSA: 2.52 m2 Age: 3 1960,64Y Sex: M BP: 138/67 Sonogrphr: Marysol Nguyen Pat. Stat.:Outpatient CPT - 4: [id number] Reason for Study:Shortness of breath Procedures: 2D, M-mode, Doppler, Color Flow, Definity was used to enhance endocardial definition. The study quality is technically difficult. Race: W ++++++++++++++++++++++++++++++++++++ SUMMARY: ++++++++++++++++++++++++++++++++++++ The left ventricular size is normal. The left ventricular systolic function is normal. Estimated left ventricular ejection fraction is 65-70%. Mild to moderate concentric left ventricular hypertrophy. Left ventricular diastolic function is not reliably assessed. Wall motion appears normal in all segments. The left atrial volume is mildly increased (34- 41ml/M2). Right atrial size is mildly enlarged. Unable to reliably quantitate pulmonary systolic pressure. Technically difficult exam due to body habitus. No significant valvular abnormality. ++++++++++++++++++++++++++++++++++++ FINDINGS: ++++++++++++++++++++++++++++++++++++ LV: The left ventricular size is normal. The left ventricular systolic function is normal. Estimated left ventricular ejection fraction is 65-70%. Mild to moderate concentric left ventricular hypertrophy. Left ventricular diastolic function is not reliably assessed. WM: Wall motion appears normal in all segments. RV: The right ventricle not adequately visualized in all views. TAPSE = 23.1mm (<16 mm indicates systolic RV dysfunction). IVS: Intraventricular septum is normal. LA: The left atrial volume is mildly increased (34- 41ml/M2). RA: Right atrial size is mildly enlarged. IAS: Atrial septum is normal. MICHELL: No evidence of pericardial effusion. AO: Normal aortic root. PA: Unable to reliably quantitate pulmonary systolic pressure. SVn: Systemic veins not well visualized. Other: Technically difficult exam due to body habitus. AV: No evidence of aortic valve stenosis. No evidence of aortic valve regurgitation. The aortic valve not well visualized. MV: No evidence of significant mitral regurgitation. No evidence of mitral stenosis. PV: Pulmonic valve not well visualized. TV: No evidence of tricuspid regurgitation. No evidence of tricuspid valve stenosis. The tricuspid valve is not well visualized. ++++++++++++++++++++++++++++++++++++ MEASUREMENTS: ++++++++++++++++++++++++++++++++++++ DOPPLER TV Forward Flow TV E/A 0.96 Aortic Valve Cardiovascular 2.19 cm Aortic Root Roly 4.1 cm LVOT/AoV (MEDICARE NURSE) ( 0.86 Left atrial orly 4.64 cm AV Antegrade Flow Peak Velocity ( 0.86 m/s Mean Velocity ( 0.67 m/s Velocity Time I 15.3 cm AV Antegrade Flow Simplified Bernoulli Gradient pressu 3 mmHg Gradient pressu 1.9 mmHg AV Continuity Equation by Velocity Time Integral Aortic Valve Ar 3.43 cm2 AoV Area Index 1.36 Left Ventricle Stroke Volume ( 52.5 ml Cardiac Output 3.68 liter per minute LV Antegrade Flow Peak Velocity ( 0.74 m/s Mean Velocity ( 0.54 m/s Velocity Time I 13.9 cm LV Antegrade Flow Simplified Bernoulli Gradient pressu 2.2 mmHg Gradient pressu 1.2 mmHg Mitral Valve Mitral Valve E- 0.273 second Mitral Valve E 0.95 MV Antegrade Flow Mitral Valve E- 0.42 m/s Mitral Valve A- 0.45 m/s PV Antegrade Flow Peak Velocity ( 0.94 m/s Mean Velocity ( 0.63 m/s Velocity Time I 18 cm PV Antegrade Flow Simplified Bernoulli Gradient pressu 3.5 mmHg Gradient pressu 1.8 mmHg Tricuspid Valve Tricuspid Valve 0.36 m/s Tricuspid Valve 0.38 m/s 2D Left Ventricle LVIDd 4.44 cm (3.6-5.2) LVEDV BP 126 ml LV EDV 152 ml LVESV BP 39.5 ml LV ESV 61.9 ml LV EF 59.2 % LV EDV 106 ml Left Ventricula -17.3 % LV ESV 22.9 ml LV EF 78.4 % LV EF BP 68.8 % Left Ventricula -28.9 % Left Ventricula -23.1 % Left Atrium Left Atrium Vol 32.1 ml/m2 LA Biplane Left Atrium Vol 80.9 ml LA Single Plane Left Atrium alden 7.27 cm Left Atrium alden 6.87 cm Left Atrium Vol 67.8 ml Left Atrium Vol 93.4 ml LV Teichholz Interventricula 1.51 cm Left Ventricle 2.1 cm Left Ventricle 1.43 cm Heart rate 69 Heart beat per minute Right Atrium RA sys Area 17.7 cm2 Right Ventricle Right Ventricul 3.74 cm RVIDd 4.14 cm MMODE Tricuspid Valve Tricuspid annul 2.31 cm <Electronic Signature> 12/21/2024 10:17 AM Dominick Lyon M.D. Dominick Lyon MD ECHO Final Result * (ABNORMAL) LIPID PANEL (12/11/2024 8:39 AM CDT) CHOLESTEROL 184 <200 MG/DL 12/11/2024 3:03 PM CDT [facility] TRIGLYCERIDES 121 <150 MG/DL 12/11/2024 3:03 PM CDT [facility] HDL 43 >40 MG/DL 12/11/2024 3:03 PM CDT [facility] LDL-C 117(H) <100 MG/DL 12/11/2024 3:03 PM CDT [facility] VLDL CALCULATION 24 5 - 28 MG/DL 12/11/2024 3:03 PM CDT [facility] CHOL/HDL RATIO 4.3(H) 0.0 - 4.0 12/11/2024 3:03 PM CDT [facility] LDL/HDL 2.7(H) 0.41 - 2.13 12/11/2024 3:03 PM T [facility] NON HDL CHOLESTEROL 141(H) <140 MG/DL 12/11/2024 3:03 PM T [facility] 12/11/2024 8:39 AM CDT Cecilia Kati Mar [facility] Final Resul t -YOGESH JOEHUNeha BURGIN [address] [place] [address], [place] [phone] * (ABNORMAL) CBC W/DIFF AUTOMATED (12/11/2024 8:39 AM CDT) WBC 6.11 4.00 - 10.80 x10'3/uL 12/11/2024 2:47 PM CDT -[facility] RBC 5.76 4.50 - 6.10 x10'6/uL 12/11/2024 2:47 PM CDT [facility] HGB 17.7 13.0 - 18.0 G/DL 12/11/2024 2:47 PM CDT -[facility] HCT 54.8(H) 37.0 - 52.0 % 12/11/2024 2:47 PM CDT [facility] MCV 95.1 78.0 - 100.0 FL 12/11/2024 2:47 PM CDT [facility] MCH 30.7 27.0 - 31.0 PG 12/11/2024 2:47 PM CDT [facility] MCHC 32.3(L) 33.0 - 36.0 G/DL 12/11/2024 2:47 PM CDT [facility] RDW 13.4 11.5 - 14.5 % 12/11/2024 2:47 PM CDT [facility] PLT 259 150 - 350 x10'3/uL 12/11/2024 2:47 PM CDT [facility] [facility] MPV 10.7(H) 7.4 - 10.4 FL 12/11/2024 2:47 PM CDT [facility] DIFFERENTIAL TYPE AUTOMATED DIFFERENTIAL 12/11/2024 2:47 PM CDT [facility] NEUTROPHILS % 59.0 % 12/11/2024 2:47 PM CDT [facility] LYMPHOCYTES % 27.5 % 12/11/2024 2:47 PM CDT [facility] MONOCYTES % 7.5 % 12/11/2024 2:47 PM CDT [facility] EOSINOPHILS % 4.4 % 12/11/2024 2:47 PM CDT [facility] BASOPHILS % 1.3 % 12/11/2024 2:47 PM CDT [facility] IMMATURE GRANS % 0.3 % 12/11/2024 2:47 PM CDT [facility] ABS. NEUTROPHILS 3.60 1.60 - 8.30 x10'3/uL 12/11/2024 2:47 PM CDT [facility] ABS. LYMPHOCYTES 1.68 0.80 - 4.70 x10'3/uL 12/11/2024 2:47 PM CDT [facility] ABS. MONOCYTES 0.46 0.00 - 1.50 x10'3/uL 12/11/2024 2:47 PM CDT [facility] ABS. EOSINOPHILS 0.27 0.00 - 0.40 x10'3/uL 12/11/2024 2:47 PM CDT [facility] ABS. BASOPHILS 0.08 0.00 - 0.20 x10'3/uL 12/11/2024 2:47 PM CDT [facility] ABS. IMMATURE GRANULOCYTES 0.02 0.00 - 0.03 x10'3/uL 12/11/2024 2:47 PM CDT [facility] 12/11/2024 8:39 AM CDT us [facility]ilia [facility] Final Resul t 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 Kurt Dawn MD PROCEDURES-ORDERABLE NO CHARGE Final Result [facility] * HEMOGLOBIN, GLYCOSYLATED (11/29/2024) HGB A1C 8.1 % [facility] 11/29/2024 Cecilia [facility] Final Resul t Performing Organization Address [facility] Co de Phone Number [facility] [address] [place] [address], [place] * OUTSIDE PT/INR (SCAN ORDER) (11/28/2024) 11/28/2024 [facility] Scanned SCANNING Final Resu lt * OUTSIDE LAB (SCAN ORDER) (11/28/2024) 11/28/2024 [employer] [facility] Scanned SCANNING Final Resu lt * HEPATITIS C AB ([facility] ONLY) (02/15/2024 1:27 PM CDT) HEPATITIS C AB NON-REACTI VE NON-REACT DORCAS 02/15/2024 10:10 PM CDT [facility] Comment: ANTIBODIES TO HCV NOT DETECTED. DOES NOT EXCLUDE THE POSSIBILITY OF EXPOSURE TO HCV. 02/15/2024 1:27 PM CDT Cecilia [facility] Final Resul t Performing Organization Address City/[facility]/ZIP Co de Phone Number [facility] [address] [place] [address], [place] [phone] from Last 3 Months or Most Recently [...] 6:14 PM 07/30/2019 11:24 PM Care Teams Education Managers Relationship Specialty Start Date End Date Cecilia Manuel APNP [address] [place] [address] PCP - General NURSE PRACTITIONER 02/15/24
--- OUTSIDE RECORDS SUMMARY | 2025-01-06 12:52 | XMS_ITS | Encounter Summary ---
Author Organization [facility] Address [address] [facility] [place] [address] Care Team Providers Care Art Conservator Name Role Phone Jeffrey Edwards MD Primary Care Provider [phone] Katherin Rodríguez MD Unavailable Unavailabl e Kurt Raymundo MD Primary Care Provider [phone] Dominick Lyon MD Unavailable [phone] Gaston Gray MD Unavailable Cecilai Manuel ASSISTANT PROFESSOR OF COMMUNICATION-FRONTLOAD DRIVER Primary Care Provider Reason for Visit * Reason Comments Refill Request Encounter Details Date Type Department Care Team (Late st Contact Info) Description 01/15/2019 Refill [facility] [address] [facility] S[address] [place] [address] Avinash Corbett MD [address] [place], [place] [id number] Refill Request Social History Tobacco Use Types Packs/Day Years Used Date Smoking Tobacco: Never Smokeless Tobacco: Never Alcohol Use Standard Drinks/Week Comments No 0 (1 standard drink = 0.6 oz pur e alcohol) former some alcohol Sex and Gender Information Value Date Recorded Sex Assigned at Not on file Legal Sex Male 2:13 PM 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 [address] [place] [phone] Material Stockkeeper Yard Internal Medicine 02/18/21 Gaston Gray MD [address] [facility] [place] [address] Surgeon Orthopedic Surgery 04/07/22 documented as of this encounter
--- OUTSIDE RECORDS SUMMARY | 2025-01-06 12:52 | XMS_ITS | Encounter Summary ---
Author Organization [facility] Address [address] [place] [address] Care Team Providers Care General Internal Medicine Doctor Name Role Phone Jeffrey Edwards MD Primary Care Provider Un available Breanne Blakely MD, Kurt Primary Care Provider Cecilia Manuel Primary Care Provider [phone] Encounter Details Date Type Department Care Team (Late st Contact Info) Description 08/04/2019 Hospital Follow-up Call [facility] [place] [address] Penelope Hernandez, Commercial Producer Social History Tobacco Use Types Packs/Day Years [...] Assessment Author Status No 07/29/2019 10:01 PM DISPLAY ASSOCIATE Acti ve * RETIRED Are you blind or do you have serious difficulty seeing, even when wearing glasses? Answer Date of Assessment Author Status No 07/29/2019 10:01 PM DISPLAY ASSOCIATE Acti ve * Do you have serious difficulty walking or climbing stairs? Answer Date of Assessment Author Status No 07/29/2019 10:01 PM DISPLAY ASSOCIATE Maribell Galeas RN Active * Do you [...] Info) Description 01/11/2025 11:15 AM CDT Appointment [facility] Ultrasound [address] [place] [address] Linda Dean APNP [address] [place] [address] 03/02/2025 8:20 AM CDT Office Visit [facility] Family & Internal Medicine - [address] [address] Cecilia Manuel APNP [address] [place] [address] 03/09/2025 1:00 PM CDT Office Visit [facility] [address] Dominick Lyon MD [address] [facility] [address] [place] [phone] documented as of this encounter Visit Diagnoses Not on filedocumented in this encounter Additional Health Concerns Infection Onset Date Last Indicated Resolved Time COVID-19 Rule Out 12/02/2019 12/02/2019 12/03/2019 9:01 AM CDT documented as of this encounter Care Teams General Internal Medicine Doctor Relationship Specialty Start Date End Date Jeffrey Edwards MD PCP - General INTERNAL MEDICINE 04/27/17 08/01/20 Kurt Raymundo MD PCP - General INTERNAL MEDICINE 08/02/20 02/14/24 Cecilia Manuel APNP [address] [place] [id number] PCP - General NURSE PRACTITIONER 02/15/24 documented as of this encounter
--- OUTSIDE RECORDS SUMMARY | 2025-01-06 12:52 | XMS_ITS | Clinical Summary ---
Author Organization [facility] Address [address] [facility] [place] [address] Care Team Providers Care Lap Regulator Name Role Phone Dominick Lyon MD Unavailable [phone] Gaston Gray MD Unavailable Cecilia Manuel TOOL DIE MAKER-VIDEO OPERATOR Primary Care Provider Source Comments [facility],non-owned Affiliates and Associated Physician Practices is amultiple site organization consisting of ambulatory clinics and hospital sitesin [place], [place], [place] and [place]. This disclosure is being madepursuant to the Care Everywhere program and may not contain all information available regarding this patient. 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 No notable benefit w/ duloxetine, no side effects of note -Discussed finding a therapist, will send a referral -Increase duloxetine to 40mg qd Assessment & Plan (04/11/2022 9:51 PM PHARMACEUTICAL DETAILER): Stable depression -Continue duloxetine -Will re assess after a few weeks Assessment & Plan (10/01/2021 9:52 AM CDT): Has been off Duloxetine since March Has tried a grief support group but didn't find it beneficial Plan: -Restart duloxetine -Discussed establishing with a therapist/counselor Assessment & Plan (04/09/2021 11:19 PM PHARMACEUTICAL DETAILER): Has been of Duloxetine for 2-3 weeks, has tried a grief support group but didn't find it beneficial -Resume duloxetine -Discussed establishing with a therapist/counselor Assessment & Plan (10/21/2020 11:31 AM CDT): Currently taking Duloxetine, tolerating well -Continue duloxetine, encouraged to establish care with psychiatrist Assessment & Plan (06/30/2020 4:28 PM PHARMACEUTICAL DETAILER): Severe major depression w/ SI -Patient hesitant [...] cardiology Assessment & Plan (05/22/2023 2:43 PM PHARMACEUTICAL DETAILER): BP better at home -Continue medications Assessment & Plan (11/11/2022 9:41 AM CDT): BP at goal -Continue meds Assessment & Plan (04/11/2022 9:50 PM PHARMACEUTICAL DETAILER): Resume medications -Refilled -Check chemistries Assessment & Plan (10/01/2021 9:41 AM CDT): BP at goal this visit Plan: -Continue blood pressure medications -Check blood pressure at home Assessment & Plan (04/09/2021 10:40 PM PHARMACEUTICAL DETAILER): BP above goal, has missed some doses this week -Resume medications, monitor home BP -Check bmp Assessment & Plan (06/30/2020 4:30 PM PHARMACEUTICAL DETAILER): Above goal -Continue Losartan -Resume HCTZ 25mg [...] improving Assessment & Plan (06/30/2020 4:32 PM PHARMACEUTICAL DETAILER): -Continue therapy -Recommended topical NSAID for pain/swelling [...] 07/29/2019 10/21/2020 Coronary artery disease invo lving tanana coronary artery of tanana heart without angina pectoris 07/13/2019 04/09/2021 Overview [...] one week. Coronary artery disease invo lving tanana coronary artery of tanana heart without angina pectoris 07/13/2019 04/09/2021 Overview [...] Subdural hematoma 07/05/2019 10/21/2020 Hyperparathyroidism 09/20/2018 10/06/19 22 Positive CLAY (antinuclear antibody) 09/07/2018 11/19/2022 History [...] months. Assessment & Plan (07/27/2019 10:05 AM PHARMACEUTICAL DETAILER): Chronic Diastolic Heart Failure: Stable, resume Lasix [...] nitro Assessment & Plan (04/11/2022 9:54 PM PHARMACEUTICAL DETAILER): Unclear cause of chest pain -Resume prn [...] Odynophagia 09/20/2018 Coronary artery disease invo lving tanana coronary artery of tanana heart without angina pectoris 10/21/2020 Assessment & [...] week. 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 Not on file Not on file Last Filed Vital Signs Vital Sign Reading Time Taken Comments Blood Pressure 150/88 05/19/2023 9:31 AM PHARMACEUTICAL DETAILER Pulse 83 05/19/2023 9:31 AM PHARMACEUTICAL DETAILER Temperature 35.9 C (96.6 F) 05/19/2023 9:31 AM PHARMACEUTICAL DETAILER Respiratory Rate 14 03/04/2021 10:1 5 AM CDT Oxygen Saturation 95% 05/19/2023 9:31 AM PHARMACEUTICAL DETAILER Inhaled Oxygen Concentration - - Weight 144.1 kg (317 lb 9.6 oz) 05/19/2023 9:31 AM PHARMACEUTICAL DETAILER Height 177.8 cm (5' 10) 05/19/2023 9:31 AM PHARMACEUTICAL DETAILER Body Mass Index 45.57 05/19/2023 9:31 AM PHARMACEUTICAL DETAILER Plan of Treatment Health Maintenance Due Date Last Done Comments COLOGUARD (AGES 45-75) - COLON CA SCREENING [address] COLONOGRAPHY - COLON CA SCREENING 1960 FIT - COLON CA SCREENING 1960 FLEX SIG - COLON CA SCREENING 1960 PNEUMOCOCCAL VACCINE 50+ (1 of 1 - PCV) 07/25/2009 COVID-19 VACCINE ( season) 2024 08/02/2023, 04/25/2021, 08/13/2020, Additional history exists DEPRESSION SCREENING 05/24/2024 12/24/2022, 11/11/2022, 04/08/2022 INFLUENZA VACCINE (#1) 2025 , 05/19/2023, 04/08/2022, Additional history exists COLONOSCOPY - COLON CA SCREENING 03/02/2027 03/02/2017 Colorectal Cancer Screening 03/02/2027 SCREENING FOR DIABETES 05/02/2027 , 05/02/2024, 05/02/2024, Additional history exists DTAP/TDAP/TD VACCINES (3 - Td or Tdap) 05/19/2033 05/19/2023, 12/27/2009 HIV SCREENING Completed 08/19/2018 Respiratory Syncytial Virus (RSV) Vaccine Pt: or over 60 yrs Completed 08/02/2023 ZOSTER VACCINE Completed 08/02/2023, 05/19/2023 HEPATITIS C SCREENING Completed 02/15/2024, 019 HEPATITIS B VACCINE Aged Out No longe [...] Mobility General No change( 020 10:49 AM PHARMACEUTICAL DETAILER) Sierra Talley, RN Note: Expected end date: 05/23/2020 The goal is to maintain or improve your mobility at the optimum level for you. Interventions: Medical Devices Implanted Type Area Channel Cementer Device Identifier Shelf Expiration Date Model / Serial / Lot Stent Uret 6fr 26cm Pgtl Crv Tpr Tip Implanted:Qty: 1 on 10/13/2018 by Akosua Rai DO at [facility] [employer] 04/18/2021 [id number] / / [id number] Wire Implanted:Qty: 1 on 03/19/2020 by Tesfaye Fernandes MD at [facility] Left: Finger [employer] 01/21/2029 [id number] / / [id number] Description:left small finge r Tendon Anchors Implanted:Qty: 1 on 03/04/2021 by Gaston Gray MD at [facility] Left: Shoulder [employer] 2023 [id number] / / [id number] Bioinductive Implant With Arthro Del Pkg Med Implanted:Qty: 1 on 03/04/2021 by Gaston Gray MD at [facility] Left: Shoulder [employer] 10/13/2023 [id number] / / [id number] Bone Anchors Implanted:Qty: 1 on 03/04/2021 by Gaston Gray MD at [facility] Left: Shoulder [employer] 10/11/2023 [id number] / / [id number] Procedures Procedure Name Priority Date/Time Associated Diagnosis Comments HEMOGLOBIN A1C Routine 05/26/2023 9:22 AM PHARMACEUTICAL DETAILER Hypertension, essential HEPATITIS C AB SCREEN RFLX NAAT QUANT STAT 08/19/2018 7:04 PM CDT HIV-1 HIV-2 ANTIGEN/ANTIBODY STAT 08/19/2018 7:04 PM CDT from Last 3 Months or Most Recently Relevant to Health Maintenance Results * (ABNORMAL) HEMOGLOBIN A1C (05/26/2023 9:22 AM PHARMACEUTICAL DETAILER) Hemoglobin A1c 6.9(H) <5.7 % of total [...] of diabetes for children. Test Performed at: [facility] [address] DIVINE MONTEZ MD Blood BLOOD SPECIMEN / Unknown 05/26/2023 9:22 AM PHARMACEUTICAL DETAILER 05/26/2023 9:22 AM PHARMACEUTICAL DETAILER Kurt Raymundo MD LAB - CHEMISTRY ORDERABLES Fi nal Result [facility] [address] [place] [address] * HIV-1 HIV-2 ANTIGEN/ANTIBODY (08/19/2018 7:04 PM CDT) HIV Antigen/Antibod y 1 & 2 Non-reacti ve Non-react azam 08/19/2018 7:49 PM CDT [facility] Comment: Neither HIV-1 p24 Antigen nor HIV-1/HIV-2 Antibodies are detected. Blood BLOOD SPECIMEN / Unknown Venipuncture / Unknown 08/19/2018 7:04 PM CDT 08/19/2018 7:09 PM CDT Jose Vizcaino MD LAB - HEMATOLOGY ORDERABLES Vanessa l Result Performing Organization Address [facility] Co de Phone Number [address] [phone] * HEPATITIS C AB SCREEN RFLX NAAT QUANT (08/19/2018 7:04 PM CDT) Pathologist [facility] Hepatitis C Antibody Non-react azam Non-reac tive 08/19/2018 7:56 PM CDT [facility] Comment: Hepatitis C Antibody screen indicates [...] CHEMISTRY ORDERABLES Final Result Performing Organization Address City/[facility] Co de Phone Number [address] [phone] from Last 3 Months or Most Recently [...] 8:35 PM 08/19/2018 9:54 PM Care Teams Lap Regulator Relationship Specialty Start Date End Date Cecilia Manuel, TOOL DIE MAKER-VIDEO OPERATOR [address] [place] [address] PCP - General Nurse Practitioner 04/12/24 Dominick Lyon MD [address] [place] [phone] Certified Legal Secretary Specialist Internal Medicine 02/18/21 Gaston Gray MD [address] [facility] [place] [address] Surgeon Orthopedic Surgery 04/07/22
--- OUTSIDE RECORDS SUMMARY | 2025-01-06 12:52 | XMS_ITS | Encounter Summary ---
Author Organization [facility] Address [address] [place] [address] Care Team Providers Care Computer Training Specialist Name Role Phone Mar Cecilia HIGUERA Primary Care Provider [phone] Encounter Details Date Type Department Care Team (Late st Contact Info) Description 12/13/2024 Results Follow-Up [facility] Family & Internal Medicine [facility] [address] [place] [address] Luciana Mendoza FNP [address] [place], [place] [phone] CBC W/DIFF AUTOMATED, LIPID PANEL Social History Tobacco Use Types Packs/Day Years [...] Assessment Author Status No 08/01/2020 11:18 PM PATCHING MACHINE OPERATOR Acti ve * RETIRED Are you blind or do you have serious difficulty seeing, even when wearing glasses? Answer Date of Assessment Author Status No 08/01/2020 11:18 PM PATCHING MACHINE OPERATOR Acti ve * Do you have serious difficulty walking or climbing stairs? Answer Date of Assessment Author Status No 08/01/2020 11:18 PM PATCHING MACHINE OPERATOR Palma David Active * Do you have difficulty dressing or bathing? Answer Date of Assessment Author Status No 08/01/2020 11:18 PM PATCHING MACHINE OPERATOR Palma David Active * Because of a [...] Palma Schumacher Active documented in this encounter Progress Notes * MAYRA Strickland - 12/13/2024 12:10 PM CDT Cholesterol levels look like they have improved since last check he should continue working on his diet His other labs look good documented in this encounter Plan of Treatment Upcoming Encounters Date Type Department Care Team (Late st Contact Info) Description 01/11/2025 11:15 AM CDT Appointment [facility] [address] [place] [address] Linda Dean APNP [address] [place] [phone] 03/02/2025 8:20 AM CDT Office Visit [facility] Family & Internal Medicine - [address] [phone] Cecilia Manuel APNP [address] [place] [address] 03/09/2025 1:00 PM CDT Office Visit [facility] [address] [place] [address] Dominick Lyon MD [address] [place] [address] [address] [place] [phone] documented as of this encounter Visit Diagnoses Not on filedocumented in this encounter Additional Health Concerns Assessment Noted Time PHQ-9 Depression Total Score: 10 11/29/ 025 8:38 AM CDT documented as of this encounter Care Teams Computer Training Specialist Relationship Specialty Start Date End Date Cecilia Manuel APNP [address] [place] [address] PCP - General NURSE PRACTITIONER 02/15/24 documented as of this encounter
--- OUTSIDE RECORDS SUMMARY | 2025-01-06 12:52 | XMS_ITS | Encounter Summary ---
Author Organization [facility] Address [address] [place] [address] Care Team Providers Care Farm Service Consultant Name Role Phone Jeffrey Edwards MD Primary Care Provider Un available Breanne Blakely MD, Kurt Primary Care Provider Cecilia Manuel Primary Care Provider [phone] Encounter Details Date Type Department Care Team (Late st Contact Info) Description 07/14/2019 Hospital Follow-up Call [facility] [place] [address] Penelope Hernandez, Photolettering Machine Operator Social History Tobacco Use Types Packs/Day Years [...] Assessment Author Status No 07/13/2019 3:27 PM EMERGENCY MEDICINE PHYSICIAN Activ e * RETIRED Are you blind or do you have serious difficulty seeing, even when wearing glasses? Answer Date of Assessment Author Status No 07/13/2019 3:27 PM EMERGENCY MEDICINE PHYSICIAN Activ e * Do you have serious difficulty walking or climbing stairs? Answer Date of Assessment Author Status No 07/13/2019 3:27 PM EMERGENCY MEDICINE PHYSICIAN Sharee Bull R N Active * Do you have difficulty dressing or bathing? Answer Date of Assessment Author Status No 07/13/2019 3:27 PM EMERGENCY MEDICINE PHYSICIAN Sharee Bull R N Active * Because of a physical, mental, or emotional condition, do you have difficulty doing errands alone such as visiting a doctor's office or shopping? Answer Date of Assessment Author Status No 07/13/2019 3:27 PM Sharee Claros R N Active documented as of this encounter Mental Status * Because of a physical, mental, or emotional condition, do you have serious difficulty concentrating, remembering, or making decisions? Answer Entry Date Author Status No 07/13/2019 3:27 PM EMERGENCY MEDICINE PHYSICIAN Sharee Bull R N Active documented in this encounter Plan of Treatment Upcoming Encounters Date Type Department Care Team (Late st Contact Info) Description 01/11/2025 11:[address] [facility] Ultrasound [address] [address] Linda Dean APNP [address] [place] [address] 03/02/2025 8:20 AM CDT Office Visit [facility] Family & Internal Medicine - [address] [phone] Cecilia Manuel APNP [address] [place] [address] 03/09/2025 1:00 PM CDT Office Visit [facility] [phone] Dominick Lyon MD 3 [facility] [place] [address] [place] [phone] documented as of this encounter Visit Diagnoses Not on filedocumented in this encounter Additional Health Concerns Infection Onset Date Last Indicated Resolved Time COVID-19 Rule Out 12/02/2019 12/02/2019 12/03/2019 9:01 AM CDT documented as of this encounter Care Teams Farm Service Consultant Relationship Specialty Start Date End Date Jeffrey Edwards MD PCP - General INTERNAL MEDICINE 04/27/17 08/01/20 Kurt Raymundo MD PCP - General INTERNAL MEDICINE 08/02/20 02/14/24 Cecilia Manuel APNP [address] [place] [address] [id number] PCP - General NURSE PRACTITIONER 02/15/24 documented as of this encounter
--- OUTSIDE RECORDS SUMMARY | 2025-01-06 12:52 | XMS_ITS | Encounter Summary ---
Author Organization [facility] Address [address] [place] [address] Care Team Providers Care Customer Success Advocate Name Role Phone Mar Cecilia HIGUERA Primary Care Provider [phone] Encounter Details Date Type Department Care Team (Latest Contact Info) Description 12/25/2024 Scan [facility] Scanned, Doc Med Group Social History Tobacco Use Types Packs/Day Years [...] Assessment Author Status No 08/01/2020 11:18 PM ART CONSULTANT Acti ve * RETIRED Are you blind or do you have serious difficulty seeing, even when wearing glasses? Answer Date of Assessment Author Status No 08/01/2020 11:18 PM ART CONSULTANT Acti ve * Do you have serious [...] Info) Description 01/11/2025 11:15 AM CDT Appointment [facility] Ultrasound [facility] [place] [address] Linda Dean APNP [address] [place] [address] 03/02/2025 8:20 AM CDT Office Visit [facility] Family & Internal Medicine - [address] [phone] Cecilia Manuel APNP [address] [place] [address] 03/09/2025 1:00 PM CDT Office Visit [facility]-[address] [phone] Dominick Lyon MD 3 [facility] [place] [address] [place] [phone] documented as of this encounter Visit Diagnoses Not on filedocumented in this encounter Additional Health Concerns Assessment Noted Time PHQ-9 Depression Total Score: 10 025 8:38 AM CDT documented as of this encounter Care Teams Customer Success Advocate Relationship Specialty Start Date End Date Cecilia Manuel APNP [address] [place] [address] PCP - General NURSE PRACTITIONER 02/15/24 documented as of this encounter
--- OUTSIDE RECORDS SUMMARY | 2025-01-06 12:52 | XMS_ITS | Encounter Summary ---
Author Organization [facility] Address [address] [place] [address] Care Team Providers Care Haz Tech Name Role Phone Jeffrey Edwards MD Primary Care Provider [phone] Katherin Rodríguez MD Unavailable Unavailabl e Kurt Raymundo MD Primary Care Provider [phone] Dominick Lyon MD Unavailable [phone] Gaston Gray MD Unavailable Cecilia Manuel AUTOMOBILE MECHANIC-CONCRETE FLOATER Primary Care Provider Encounter Details Date Type Department Care Team (Late st Contact Info) Description 01/09/2020 Telephone [facility] [address] [place] [address] Jeffrey Edwards MD [address] [facility] [place] [address] Social History Tobacco Use Types Packs/Day Years Used Date Smoking Tobacco: Never Smokeless Tobacco: Never Alcohol Use Standard Drinks/Week Comments No 0 (1 standard drink = 0.6 oz pur e alcohol) former some alcohol Sex and Gender Information Value Date Recorded Sex Assigned at Not on file Legal Sex Male 2:13 PM 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 Answer Date of Assessment Author No 08/23/2018 9:36 AM CDT Cathleen Mendoza RN * Is person blind [...] Entry Date Author No 08/23/2018 9:36 AM MARYT Cathleen Mendoza RN documented in this encounter [...] office that day or telemed? Kin Figueredo [id number] Thank you Jose Schaffer documented in this encounter Plan of Treatment Not on file documented as of this encounter Visit Diagnoses Not on filedocumented in this encounter Care Teams Haz Tech Relationship Specialty Start Date End Date Jeffrey Edwards MD PCP - General 09/01/17 06/29/20 Kurt Raymundo MD [address] [place] [address] PCP - General Internal Medicine 06/30/20 04/11/24 Cecilia Manuel, AUTOMOBILE MECHANIC-CONCRETE FLOATER [address] [place], [place] [phone] PCP - General Nurse Practitioner 04/12/24 Katherin Rodríguez MD Physician Cardiology 03/14/20 04/06/22 Dominick Lyon MD 3 [facility] [address] [place] [phone] Contact Lens Curve Grinder Internal Medicine 02/18/21 Gaston Gray MD [address] [place] [address] Surgeon Orthopedic Surgery 04/07/22 documented as of this encounter
--- OUTSIDE RECORDS SUMMARY | 2025-01-06 12:52 | XMS_ITS | Patient Health Record ---
Author Organization [facility] Address [address] [place], [place] [id number] Care Team Providers Care Prescriptionist Name Role Phone SHARMIN WAKEFIELD Unavailable [phone] Reason For Referral No Information Medications Medication SIG (Take, Route, Frequency, Duration) Notes Start Date End Date Status aspirin 81 MG Delayed Release Oral Tablet ORAL aspirin 81 MG Delayed Release Oral TabletOriginal Medicationaspirin 81 MG Delayed Release Oral Tablet *Reorder from [employer] for eRx and Interaction Alerts* 02/02/2018 Active [id number] 200 ACTUAT albuterol 0.09 MG/ACTUAT Metered Dose Inhaler INTRAPULMONARY [id number] 200 ACTUAT albuterol 0.09 MG/ACTUAT Metered Dose InhalerOriginal [id number] 200 ACTUAT albuterol 0.09 MG/ACTUAT Metered Dose Inhaler *Reorder from [employer] for eRx and Interaction Alerts* 02/02/2018 Active folic acid 1 MG / vitamin B12 0.5 MG Oral Tablet ORAL folic acid 1 MG / vitamin B12 0.5 MG Oral TabletOriginal Medicationfolic acid 1 MG / vitamin B12 0.5 MG Oral Tablet *Reorder from [employer] for eRx and Interaction Alerts* 02/02/2018 Active lutein 25 MG / zeaxanthin 5 MG Oral Capsule ORAL lutein 25 MG / zeaxanthin 5 MG Oral CapsuleOriginal Medicationlutein 25 MG / zeaxanthin 5 MG Oral Capsule *Reorder from [employer] for eRx and Interaction Alerts* 02/02/2018 Active nabumetone 500 MG Oral Tablet [Relafen] ORAL nabumetone 500 MG Oral Tablet [Relafen]Original Medicationnabumetone 500 MG Oral Tablet [Relafen] *Reorder from [employer] for eRx and Interaction Alerts* 03/31/2013 Active Plan Of Treatment No Information Insurance Providers Payer Name Payer Address Payer Phone Subscriber Number Group Number Insured Name Patient Relationship to Insured Coverage Start Date Coverage End Date [facility] ([facility] ATTN CLAIMS [address] [place] [address] [id number] LEXII WILLIAM Self - patient is the insured
--- OUTSIDE RECORDS SUMMARY | 2025-01-06 12:52 | XMS_ITS | Encounter Summary ---
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 Answer Date of Assessment Author Status No 08/01/2020 11:18 PM OLIVE KNOCKER Acti ve * Do you have serious [...] Info) Description 01/11/2025 11:15 AM CDT Appointment [facility] [address] [facility] [address] [address] Linda Dean APNP [address] [place] [address] 03/02/2025 8:20 AM CDT Office Visit [facility] Family & Internal Medicine - [address] [phone] Cecilia Manuel APNP [address] [place] [address] 03/09/2025 1:00 PM CDT Office Visit [facility]-[address] [address] Dominick Lyon MD 3 [facility] [address] [place] [phone] documented as of this encounter Visit Diagnoses Not on filedocumented in this encounter Additional Health Concerns Assessment Noted Time PHQ-9 Depression Total Score: 14 025 9:50 AM CDT documented as of this encounter Care Teams Crossbar Frame Wirer Relationship Specialty Start Date End Date Cecilia Manuel APNP [address] [place] [address] PCP - General NURSE PRACTITIONER 02/15/24 documented as of this encounter
[2025-01-06 12:58] VITALS: BP 158/104; PULSE 69; RESP 18; TEMP 36.2; O2SAT 99
--- NOTE | 2025-01-06 13:28 | ED.BACK ---
HPI - Back Pain/Injury General Chief Complaint: Back Pain/Injury Stated Complaint: back pain/painful breathing Time Seen by Provider: 01/06/25 13:10 Source: patient and RN notes reviewed Mode of arrival: ambulatory Limitations: no limitations History of Present Illness HPI Narrative: 64-year-old male presents Express Care complaining of left upper/mid back pain for approximately 1.5 months. Patient denies any falls or injuries to his back. Patient says has not hurt when he moves his left arm but states it hurts when he is turning his trunk left or right. Patient says the pain is worse when he goes from sitting to standing, he denies any pain when he is lying flat. Patient reports the pain is sharp and stabbing pain. Patient reports the pain is also worse when he takes a deep breath. Patient denies any chest pain, difficulty breathing, nausea vomiting, fevers body aches, chills, cough, or any other symptoms. Patient has been taking Tylenol intermittently without relief. Related Data Home Medications ?Medication ?Instructions ?Recorded ?Confirmed ?Last Taken ?Type amlodipine 5 mg tablet 10 mg PO 06/27/24 11/28/24 Unknown History aspirin 81 mg tablet,delayed 81 mg PO DAILY 06/27/24 11/28/24 Unknown History release (Adult Aspirin Regimen) carvedilol 12.5 mg tablet 12.5 mg PO Q12H 06/27/24 11/28/24 Unknown History cholecalciferol (vitamin D3) 25 25 mcg PO DAILY 06/27/24 11/28/24 Unknown History mcg (1,000 unit) capsule clobetasol 0.05 % topical ointment 1 applic topical DAILY 06/27/24 11/28/24 Unknown History empagliflozin 25 mg tablet 25 mg PO DAILY 06/27/24 11/28/24 Unknown History escitalopram oxalate 20 mg tablet 20 mg PO DAILY 06/27/24 11/28/24 Unknown History ezetimibe 10 mg tablet 10 mg PO DAILY 06/27/24 11/28/24 Unknown History hydrochlorothiazide 25 mg tablet 25 mg PO DAILY 06/27/24 11/28/24 Unknown History losartan 100 mg tablet 50 mg PO .COMPLEX 06/27/24 11/28/24 Unknown History nitroglycerin 0.4 mg sublingual 0.4 mg sublingual Q5M PRN 06/27/24 11/28/24 Unknown History tablet rosuvastatin 10 mg tablet 10 mg PO DAILY 06/27/24 11/28/24 Unknown History magnesium oxide 250 mg PO DAILY 01/06/25 Unknown History vit C 250 mg-vit E 90 mg-zinc 40 1 tablet PO ONCE 01/06/25 Unknown History mg-copper 1 [id number] capsule ([facility] AREDS-2) Allergies Allergy/AdvReac Type Severity Reaction Status Date / Time clarithromycin Allergy Mild Hives Verified 01/06/25 12:59 ibuprofen Allergy Unknown Hives Verified 01/06/25 12:59 naltrexone Allergy Unknown Hives Verified 01/06/25 12:59 vancomycin Allergy Unknown Verified 01/06/25 12:59 Review of Systems Review of Systems: CONSTITUTIONAL: Denies fever, chills, or sweats. EYES: Denies visual changes, redness, or discharge. ENT: Denies rhinorrhea, congestion, sore throat, or otalgia. CARDIOVASCULAR: Denies chest pain, palpitations, or edema. RESPIRATORY: Denies cough or dyspnea. GASTROINTESTINAL: Denies abdominal pain, nausea, vomiting, or diarrhea. GENITOURINARY: Denies dysuria or hematuria. SKIN: Denies rash or itching. MUSCULOSKELETAL: Positive for back pain. Negative for joint pain, or myalgia. NEUROLOGIC: Denies headache, numbness, or weakness. PSYCHIATRIC: Denies anxiety or depression. All other systems reviewed are negative, except as documented in HPI. PMFSH Past Medical History Medical History Metabolic dysfunction-associated steatohepatitis (MASH) Hypertension Anxiety Surgical History Surgical History H/O brain surgery 2020, old blood removal Social History Social History Smoking status: Smoker, status unknown Gender identity (if verbalized by the patient): Male Comments At the time of my signature, I reviewed and agree with the nursing past medical, surgical, social, and family history. There is no relevant family history pertinent to the patient complaint. Exam Narrative: GENERAL: This is a well-nourished, well-developed adult, in no apparent distress. They are non ill-appearing, nontoxic appearing. HEAD: normocephalic, atraumatic. EYES: Sclera clear/white. Conjunctiva normal. Vision is grossly intact. Extraocular movements intact EARS: External ears normal, Hearing grossly intact. NOSE: External nose normal . THROAT: Mucous membranes moist, NECK: Neck supple, non-tender without lymphadenopathy, masses or thyromegaly. No cervical point tenderness, crepitus, or step-offs. CARDIOVASCULAR: Regular rate and rhythm without murmurs, gallops, or rubs. RESPIRATORY: Clear to auscultation. Breath sounds equal bilaterally. No wheezes, rales, or rhonchi. SKIN: warm, Dry, intact with no suspicious lesions or rash, good texture and turgor. NEURO: awake, alert, and oriented to person, place and time. There were no obvious focal neurologic abnormalities. EXTREMITIES: No joint tenderness, effusion, or edema noted. BACK: Nontender without deformity. No CVA tenderness. No thoracic or lumbar point tenderness. No crepitus or step-offs. Course Course Emergency Course: Portions of this record may have been created with voice recognition software Level of Care: Express Care Visit Vital Signs Vital signs: Vital Signs Temperature 97.2 F L 01/06/25 12:58 Pulse Rate 69 01/06/25 12:58 Respiratory Rate 18 01/06/25 12:58 Blood Pressure 158/104 H 01/06/25 12:58 Pulse Oximetry 99 01/06/25 12:58 Oxygen Delivery Room Air 01/06/25 12:58 Temperature 97.2 F L 01/06/25 12:58 Pulse Rate 69 01/06/25 12:58 Respiratory Rate 18 01/06/25 12:58 Blood Pressure 158/104 H 01/06/25 12:58 Pulse Oximetry 99 01/06/25 12:58 Oxygen Delivery Room Air 01/06/25 12:58 Reviewed MDM - Back Pain/Injury MDM Narrative Medical decision making narrative: Patient's symptoms likely muscle skeletal in nature. Likely muscle strain. Prescribe patient lidocaine patches and muscle relaxers. Discussed physical exam findings. Advised supportive measures and signs/symptoms to go to the ER. Pt is appropriate for outpt treatment and f/u. Differential Diagnosis Differential diagnosis: Likely lumbar radiculopathy, thoracic back pain and other (Muscle strain) Critical Care Time Critical Care Time Critical Care Time: No Discharge Plan Discharge Clinical Impression: Acute upper back pain Patient Disposition: Home Condition: Stable Instructions: Back Pain (ED) Additional Instructions: Take the muscle relaxer as directed. Do not drive or operate heavy machine, or work while taking the medication as it can make you drowsy. Use the lidocaine patches as directed. You may take up to 1000 mg Tylenol every 6-8 hours. Do not exceed 1000 mg per dose, do exceed more than 4000 mg of Tylenol in a day. Please follow-up with your primary care provider if pain persist Rest. Avoid pushing, pulling, lifting --running or excessive walking-- or anything that worsens the symptoms You may try back stretches and back exercises as tolerated. Go to the emergency department if you develop any numbness or tingling to your groin, weakness in your legs, breathing problems, fevers, or any loss of bowel or bladder function. Patient Language: Bulgarian Prescriptions: New methocarbamol 750 mg tablet 750 mg PO TID Qty: 14 0RF lidocaine 5 % adhesive patch,medicated 1 patch topical DAILY Qty: 15 0RF Rx Instructions: leave on most painful area for up to 12 hrs No Action amlodipine 5 mg tablet 10 mg PO losartan 100 mg tablet 50 mg PO .COMPLEX Rx Instructions: 50 mg orally; magnesium oxide 250 mg magnesium tablet 250 mg PO DAILY [facility] AREDS-2 250-90-40-1 mg capsule 1 tablet PO ONCE Rezdiffra 100 mg tablet 100 mg PO DAILY Qty: 90 3RF aspirin [Adult Aspirin Regimen] 81 mg tablet,delayed release (DR/EC) 81 mg PO DAILY carvedilol 12.5 mg tablet 12.5 mg PO Q12H Rx Instructions: must administer with a meal/food clobetasol 0.05 % ointment 1 applic topical DAILY empagliflozin 25 mg tablet 25 mg PO DAILY escitalopram oxalate 20 mg tablet 20 mg PO DAILY ezetimibe 10 mg tablet 10 mg PO DAILY hydrochlorothiazide 25 mg tablet 25 mg PO DAILY nitroglycerin 0.4 mg tablet, sublingual 0.4 mg sublingual Q5M PRN Rx Instructions: do not exceed 3 doses per episode rosuvastatin 10 mg tablet 10 mg PO DAILY cholecalciferol (vitamin D3) 25 mcg (1,000 unit) capsule 25 mcg PO DAILY Follow-up/Referrals: Mar,TONY Brooks [Primary Care Provider] - Time of Disposition: 13:18
== END 2025-01-06 13:28 | disposition home or self-care (01) ==
PROVIDERS: PCP Registered Nurse
DX: M54.6 Pain in thoracic spine (principal); I10 Essential (primary) hypertension; F41.9 Anxiety disorder, unspecified; Z79.82 Long term (current) use of aspirin
CPT/HCPCS: 99213; G0463